=== PATIENT | female | born 1985 | race Caucasian/White ===

== ENCOUNTER → 2018-05-31 01:56 | Outpatient (CLI) | payer BC, SELFPAY ==
[2018-05-31 13:09] LABS: Abs Immature Grans 0.01 k/cumm (0.0-0.09); Absolute Basophil Count 0.06 k/cumm (0.0-0.2); Absolute Eosinophil Count 0.37 k/cumm (0.0-0.7); Absolute Lymphocyte Count 2.75 k/cumm (1.2-3.4); Absolute Monocyte Count 0.61 k/cumm (0.11-0.7); Absolute Neutrophil Count 2.48 k/cumm (1.2-6.7); Eosinophils % 5.9; HCT 37.5 % (36.0-46.0); HGB 12.6 g/dL (12.0-15.5); Immature Grans % 0.2; Lymphocytes % 43.8; Mean Corp. HGB Concentration 33.6 g/dL (32.0-36.0); Mean Corpuscular Hemoglobin 30.5 pg (27.0-33.0); Mean Corpuscular Volume 90.8 fL (80-95); Mean Platelet Volume 9.7 fL (8.0-11.0); Monocytes % 9.7; Neutrophils % 39.4; Platelet Count 333 x1000/uL (130-400); RBC 4.13 m/cumm (4.00-5.20); White Blood Cell Count 6.28 k/cumm (4.4-10.8)
[2018-05-31 13:27] LABS: TSH (W/Ref FT4) 1.74 uIU/mL (0.358-3.74)
== END ==
PROVIDERS: PCP Internal Medicine; Visit Provider Internal Medicine
DX: D64.9 Anemia, unspecified (principal); Z13.29 Encounter for screening for other suspected endocrine disorder; Z31.69 Encounter for other general counseling and advice on procreation
CPT/HCPCS: 36415; 84443; 85025

== ENCOUNTER 2019-02-06 10:38 | Outpatient (CLI) | payer BC, SELFPAY ==
[2019-02-06 11:20] LABS: Abs Immature Grans 0.01 k/cumm (0.0-0.09); Absolute Basophil Count 0.03 k/cumm (0.0-0.2); Absolute Eosinophil Count 0.22 k/cumm (0.0-0.7); Absolute Lymphocyte Count 1.94 k/cumm (1.2-3.4); Absolute Monocyte Count 0.59 k/cumm (0.11-0.7); Absolute Neutrophil Count 6.98 k/cumm (1.2-6.7); Basophils % 0.3; Eosinophils % 2.3; HCT 35.1 % (36.0-46.0); HGB 11.9 g/dL (12.0-15.5); Immature Grans % 0.1; Lymphocytes % 19.9; Mean Corp. HGB Concentration 33.9 g/dL (32.0-36.0); Mean Corpuscular Hemoglobin 30.5 pg (27.0-33.0); Mean Platelet Volume 9.1 fL (8.0-11.0); Neutrophils % 71.4; Platelet Count 312 x1000/uL (130-400); RBC Distribution Width 12.5 % (11.7-14.6); White Blood Cell Count 9.77 k/cumm (4.4-10.8)
[2019-02-06 11:52] LABS: TSH (W/Ref FT4) 1.52 uIU/mL (0.358-3.74)
[2019-02-07 10:20] LABS: Hepatitis C Ab w Rflx HCV PCR Negative (NEGAT)
[2019-02-07 10:25] LABS: HIV-1/2 Ag & Ab Screen Negative (NEGAT)
[2019-02-07 10:31] LABS: Hepatitis B Surface Ag Negative (NEGAT)
[2019-02-07 11:32] LABS: Syphilis Serology (RPR) Negative (Negative)
[2019-02-07 11:36] LABS: Rubella IgG Ab (UVM) Positive
[2019-02-07 11:54] LABS: Varicella IgG Antibody Positive
== END 2019-02-06 10:58 ==
PROVIDERS: PCP Internal Medicine; Visit Provider Advanced Practice Midwife
DX: Z34.91 Encounter for supervision of normal pregnancy, unspecified, first trimester (principal); Z11.4 Encounter for screening for human immunodeficiency virus [HIV]; Z11.59 Encounter for screening for other viral diseases; Z01.84 Encounter for antibody response examination
CPT/HCPCS: 36415; 80055; 86787; 86803; 86850; 86900; 86901; 87340; 87389; 84443; 86592; 86762

== ENCOUNTER 2019-02-06 11:39 | Outpatient (REF) | payer BC, SELFPAY ==
[2019-02-06 14:20] LABS: *AMPHETAMINES SCREEN URINE Negative (Negative); *BARBITURATES SCREEN URINE Negative (Negative); *BENZODIAZEPINES SCREEN URINE Negative (Negative); Cannabinoids THC Negative (Negative); Cocaine Screen,Urine Negative (Negative); METHADONE URINE SCREEN Negative (Negative); OPIATES URINE SCREEN Negative (Negative)
[2019-02-06 14:27] LABS: Tricyclic Antidepressants Negative (Negative)
[2019-02-07 14:49] LABS: Chlamydia Result Negative; GC Result Negative; Specimen Description CERVIX
[2019-02-10 09:46] LABS: Buprenorphine Negative; Norbuprenorphine Negative
== END 2019-02-06 11:59 ==
LOC: LBN 11:39
PROVIDERS: PCP Internal Medicine; Visit Provider Advanced Practice Midwife
DX: Z34.91 Encounter for supervision of normal pregnancy, unspecified, first trimester (principal); Z11.3 Encounter for screening for infections with a predominantly sexual mode of transmission
CPT/HCPCS: 80307; 87491; 87591; 87086

== ENCOUNTER 2019-02-25 10:09 | Outpatient (CLI) | payer BC, SELFPAY ==
[2019-02-27 10:45] LABS: AFP 51.4 ng/mL; Cigarette smoking status non-smoker; GA used in risk estimate Dates estimate; INHIBIN 309 pg/mL; IVF Pregnancy No; Initial or repeat testing Initial testing; Insulin dependent diabetes No; Maternal Weight 151 lbs; Number of Fetuses 1; Physician Phone Number 802-748-7300; Prev Down(T21)/Trisomy Pregnan No; Prev Pregnancy w/NTD No; hCG, TOTAL 107.4 IU/mL; hCG, TOTAL MoM 3.39 MoM; uE3 0.72 ng/mL; uE3 MoM 0.77 MoM
== END 2019-02-25 10:29 ==
PROVIDERS: Advanced Practice Midwife; PCP Internal Medicine; Visit Provider Advanced Practice Midwife
DX: Z34.92 Encounter for supervision of normal pregnancy, unspecified, second trimester (principal); Z36.89 Encounter for other specified antenatal screening
CPT/HCPCS: 81511

== ENCOUNTER 2019-02-28 15:42 | Outpatient (CLI) | payer BC, SELFPAY ==
[2019-02-28 15:57] LABS: Kit/Specimen SENT
== END 2019-02-28 16:02 ==
PROVIDERS: PCP Internal Medicine; Visit Provider Advanced Practice Midwife
DX: Z34.91 Encounter for supervision of normal pregnancy, unspecified, first trimester (principal); Z36.89 Encounter for other specified antenatal screening
CPT/HCPCS: 36415

== ENCOUNTER 2019-03-26 00:55 | Outpatient (CLI) | payer BC, SELFPAY ==
--- NOTE | 2019-03-26 08:41 | DI.US_ITS ---
Predicted Gestational Age: Indication/History: SURVEY,Z34.90 20.4 Wks Range: 19.4 to 21.4 Prior US done on: Determined by: First US X LMP History EDC by prior US: 08/09/19 For multiple gestations: Baby PLACENTA: Grade: 0 Location: Anterior Posterior X PRESENTATION: RT LT LOW LYING PREVIA Cephalic Trans (Head RT LT ) Varied X Breech BIOMETRY: Anatomy Identified: BPD: 50 mm 21.1 wks 4 chamber Heart X Heart Rate 155 BPM HC: 190 mm 21.2 wks LVOT X Post Fossa X AC: 164 mm 21.3 wks RVOT X Ventricles X FL: 34 mm 20.6 wks Stomach X Nose X Bladder X Lips X Cisterna Magna: 3.1 mm CI: 82 Kidneys X Palate X Cerebellum: 2.2 mm 3 vessel cord X Spine X EFW: grms % Cord Insertion X NS= not seen Composite Age (US) 21.1 wks Many abnormalities cannot be diagnosed. A normal exam does not exclude congenital abnormality. EDC by US 08/05/19 Amniotic Fluid Index: Normal COMMENTS: RUQ: LUQ: RLQ: LLQ: Total: cm Biophysical Profile: Score 0/2 ITZ (>2cm) Respirations (>30 sec) Body flexion/extension Extremity flexion/extension TOTAL SCORE Routine examination. There are no priors for comparison. There is a single living intrauterine gestation. Estimated sonographic age is 21 weeks 1 day. The fetus was in various positions during the examination. heart rate is 155 beats per minute. The AP diameter of the renal pelvis is 0.4 cm. The proximal right ureter was visualized. The left renal pelvis is unremarkable The urinary bladder was visualized during the examination. No other abnormalities were appreciated at this time. The placenta is posterior without evidence of previa. Amniotic fluid visually appears within normal limits. IMPRESSION: 1. Single living intrauterine gestation. Estimated sonographic age is 21 weeks 1 day. 2. Right renal pelvic diameter of 4 mm. with visualization of the proximal right ureter. There is visualization of the urinary bladder. Follow up is recommended in this patient for re-assessment of the right renal collecting system.
== END 2019-03-26 01:15 ==
PROVIDERS: PCP Internal Medicine; Visit Provider Advanced Practice Midwife
DX: Z34.92 Encounter for supervision of normal pregnancy, unspecified, second trimester (principal)
CPT/HCPCS: 76805

== ENCOUNTER 2019-05-21 02:01 | Outpatient (CLI) | payer OTHER, SELFPAY ==
[2019-05-21 09:01] LABS: Glucose,1 Hr (Glucola) 87 mg/dL (80-140)
== END 2019-05-21 02:21 ==
PROVIDERS: PCP Internal Medicine; Visit Provider Advanced Practice Midwife
DX: Z34.93 Encounter for supervision of normal pregnancy, unspecified, third trimester (principal)
CPT/HCPCS: 36415; 82950

== ENCOUNTER 2019-06-02 00:24 | Outpatient (CLI) | payer OTHER, SELFPAY ==
--- NOTE | 2019-06-02 10:28 | DI.US_ITS ---
SYMPTOM/DIAGNOSIS: PREV RT FACIAL HYDRONEPHROSIS Z34.90 OB ULTRASOUND, LIMITED 06/02 Right renal pelvic diameter of 4 mm was noted on previous exam of 03/26/19. On today's examination the measurement of the right renal pelvis in AP plane is about 7 mm. No left renal pyelectasis noted. Placenta is posterior with no placenta previa. There is a normal quantity of amniotic fluid. cardiac activity noted at rate of 149 BPM The fetus is in cephalic presentation. CONCLUSION: Borderline size of right renal pelvis, consistent with borderline pyelectasis. evaluation suggested. No gross hydronephrosis. Predicted Gestational Age: Indication/History: 30 +2 Wks Range: to Prior US done on: Determined by: First US LMP History EDC by prior US: 08/09/2019 For multiple gestations: Baby PLACENTA: Grade: I Location: XX Posterior PRESENTATION: RT LT LOW LYING PREVIA Cephalic Trans XX LT BIOMETRY: Anatomy Identified: BPD: mm wks 4 chamber Heart Heart Rate 149 BPM HC: mm wks LVOT Post Fossa AC: mm wks RVOT Ventricles FL: mm wks Stomach Nose Bladder Lips Cisterna Magna: mm CI: Kidneys XX Palate Cerebellum: mm 3 vessel cord Spine EFW: grms % Cord Insertion NS= not seen Composite Age (US) wks Many abnormalities cannot be diagnosed. A normal exam does not exclude congenital abnormality. EDC by US Amniotic Fluid Index: Normal COMMENTS: RUQ: LUQ: RLQ: LLQ: Total: cm Biophysical Profile: Score 0/2 ITZ (>2cm) Respirations (>30 sec) Body flexion/extension Extremity flexion/extension TOTAL SCORE
== END 2019-06-02 00:44 ==
PROVIDERS: PCP Internal Medicine; Visit Provider Advanced Practice Midwife
DX: Z34.90 Encounter for supervision of normal pregnancy, unspecified, unspecified trimester (principal)
CPT/HCPCS: 76815

== ENCOUNTER 2019-07-03 16:55 | Outpatient (REF) | payer OTHER, SELFPAY | END 2019-07-03 17:15 | LOC: LBN 16:55 | PROVIDERS: PCP Internal Medicine; Visit Provider Advanced Practice Midwife | DX: Z34.93 Encounter for supervision of normal pregnancy, unspecified, third trimester (principal) | CPT/HCPCS: 87480; 87510; 87660 ==

== ENCOUNTER 2019-07-12 08:40 | Outpatient (CLI) | payer OTHER, SELFPAY ==
[2019-07-12 12:11] LABS: ALT 33 U/L (14-59); AST 35 U/L (15-37); Albumin 2.5 g/dL (3.4-5.0); Alkaline Phosphatase 175 U/L (46-116); Bilirubin, Direct 0.16 mg/dL (0.00-0.20); Bilirubin, Total 0.5 mg/dL (0.2-1.0); Total Protein 5.8 g/dL (6.4-8.2)
[2019-07-14 17:33] LABS: Bile Acids, Total 8 mcmol/L (<=10)
== END 2019-07-12 09:00 ==
PROVIDERS: PCP Internal Medicine; Visit Provider Advanced Practice Midwife
DX: Z34.93 Encounter for supervision of normal pregnancy, unspecified, third trimester (principal)
CPT/HCPCS: 36415; 80076; 82239

== ENCOUNTER 2019-07-14 15:54 | Outpatient (CLI) | payer OTHER, SELFPAY | END 2019-07-14 16:14 | PROVIDERS: PCP Internal Medicine; Visit Provider Advanced Practice Midwife | DX: O26.613 Liver and biliary tract disorders in pregnancy, third trimester (principal); Z3A.36 36 weeks gestation of pregnancy | CPT/HCPCS: 59025 ==

== ENCOUNTER 2019-07-14 16:42 | Outpatient (REF) | payer OTHER, SELFPAY ==
[2019-07-14 17:27] LABS: *AMPHETAMINES SCREEN URINE Negative (Negative); *BARBITURATES SCREEN URINE Negative (Negative); *BENZODIAZEPINES SCREEN URINE Negative (Negative); Cannabinoids THC Negative (Negative); Cocaine Screen,Urine Negative (Negative); METHADONE URINE SCREEN Negative (Negative); OPIATES URINE SCREEN Negative (Negative)
[2019-07-14 17:49] LABS: Tricyclic Antidepressants Negative (Negative)
[2019-07-18 11:27] LABS: Buprenorphine Negative
== END 2019-07-14 17:02 ==
LOC: LBN 16:42
PROVIDERS: PCP Internal Medicine; Visit Provider Advanced Practice Midwife
DX: Z34.93 Encounter for supervision of normal pregnancy, unspecified, third trimester (principal); Z36.85 Encounter for antenatal screening for Streptococcus B
CPT/HCPCS: 80307; 87081

== ENCOUNTER 2019-07-16 07:25 | Outpatient (CLI) | payer OTHER, SELFPAY ==
--- NOTE | 2019-07-16 09:52 | DI.US_ITS ---
EXAM: US OB BIOPHYSICAL PROFILE CLINICAL HISTORY: probable icp Z34.90 SUPERVISION NORMAL . TECHNIQUE: Ultrasound performed using standard protocol. COMPARISON: US OB 2-3 trimester from 06/02/2019 FINDINGS: A cephalic bhatt is demonstrated. A cardiac rate of 130 beats per minute is noted. There is zach arent right and left hydronephrosis. The right renal pelvis measures 9 mm and the left measures 5 mm. There is a posterior placenta grade 1-2. Please see the obstetrical ultrasound worksheet for the c omplete results this examination.
[2019-07-17 16:19] LABS: Bile Acids, Total 15 mcmol/L (<=10)
== END 2019-07-16 07:45 ==
PROVIDERS: Advanced Practice Midwife; PCP Internal Medicine; Visit Provider Advanced Practice Midwife
DX: L29.9 Pruritus, unspecified; O99.713 Diseases of the skin and subcutaneous tissue complicating pregnancy, third trimester; Z36.89 Encounter for other specified antenatal screening
CPT/HCPCS: 36415; 76815; 76819; 82239

== ENCOUNTER 2019-07-16 10:53 | Outpatient (CLI) | payer OTHER, SELFPAY | END 2019-07-16 11:13 | PROVIDERS: PCP Internal Medicine; Visit Provider Advanced Practice Midwife | DX: O26.613 Liver and biliary tract disorders in pregnancy, third trimester (principal); K83.1 Obstruction of bile duct; Z3A.36 36 weeks gestation of pregnancy | CPT/HCPCS: 59025 ==

== ENCOUNTER 2019-07-18 17:07 | Inpatient (IN) | payer OTHER, SELFPAY ==
[2019-07-18] MEDS: miSOPROStol 25 MCG TAB PO ×2 (17:24→21:26)
[2019-07-18 17:38] LABS: HGB 11.1 g/dL (12.0-15.5); Mean Corp. HGB Concentration 33.6 g/dL (32.0-36.0); Mean Corpuscular Hemoglobin 30.4 pg (27.0-33.0); Mean Corpuscular Volume 90.4 fL (80-95); Mean Platelet Volume 10.8 fL (8.0-11.0); Platelet Count 267 x1000/uL (130-400); RBC 3.65 m/cumm (4.00-5.20); RBC Distribution Width 12.8 % (11.7-14.6)
[2019-07-18] MEDS: Zolpidem 5 MG TAB 10 MG PO (21:25)
[2019-07-19] MEDS: miSOPROStol 25 MCG TAB PO ×2 (02:00→08:21)
[2019-07-19] MEDS: Lactated Ringers 1,000 ML 200 ML IV (14:09)
[2019-07-19] MEDS: Normal Saline Flush 10 ML SYR IVP (21:10)
[2019-07-19] MEDS: Lactated Ringers 500 ML IV (21:10)
[2019-07-19] MEDS: FentaNYL/ROPIvacaine 2 mcg/ml and 0.1% 200 ML CADD Cassette EP (22:00)
[2019-07-20] MEDS: Lactated Ringers 1,000 ML 125 ML IV (12:47)
--- NOTE | 2019-07-20 15:00 | PDOC.ANES ---
Date of service: 07/20/19 Time of Service: 15:00 Anesthesia Note Report Anesthesia Note: Called to replace epidural catheter for patient. Gonzalez Stahl and ROSALBA Bowden reported that epidural catheter had become disconnected. Staff was instructed to stop epidural infusion and remove catheter. Arrived to patient bedside to replace epidural catheter and discussed procedure again with patient with desire to proceed. The second epidural catheter was placed per documented procedure note. Patient tolerated epidural placement well.
[2019-07-21 07:15] LABS: HCT 33.8 % (36.0-46.0); HGB 11.6 g/dL (12.0-15.5); Mean Corp. HGB Concentration 34.3 g/dL (32.0-36.0); Mean Corpuscular Hemoglobin 30.9 pg (27.0-33.0); Mean Corpuscular Volume 89.9 fL (80-95); Mean Platelet Volume 11.2 fL (8.0-11.0); Platelet Count 235 x1000/uL (130-400); RBC 3.76 m/cumm (4.00-5.20); White Blood Cell Count 23.31 k/cumm (4.4-10.8)
[2019-07-21] MEDS: Acetaminophen 325 MG TAB 650 MG PO ×2 (12:17→20:51)
[2019-07-21] MEDS: Ibuprofen 600 MG TAB PO ×2 (12:17→20:50)
[2019-07-22] MEDS: Acetaminophen 325 MG TAB 650 MG PO (12:25)
[2019-07-22] MEDS: Ibuprofen 600 MG TAB PO (12:25)
[2019-07-23] MEDS: Ibuprofen 600 MG TAB PO (10:06)
[2019-07-23] MEDS: Acetaminophen 325 MG TAB 650 MG PO (10:06)
[2019-07-23] MEDS: Hamamelis Leaf/Glycerin 100 EACH BOX PR (10:08)
== END 2019-07-23 15:25 | disposition home or self-care (01) | DRG 768 ==
PROVIDERS: Admitting Provider Advanced Practice Midwife; PCP Internal Medicine; Visit Provider Advanced Practice Midwife
DX: O26.62 Liver and biliary tract disorders in childbirth (principal); Z37.0 Single live birth; K83.1 Obstruction of bile duct; T85.610A Breakdown (mechanical) of cranial or spinal infusion catheter, initial encounter; O76 Abnormality in fetal heart rate and rhythm complicating labor and delivery; O69.1XX0 Labor and delivery complicated by cord around neck, with compression, not applicable or unspecified; Z3A.37 37 weeks gestation of pregnancy
CPT/HCPCS: 36415; 85027; 86850; 86900; 86901; J3490

== ENCOUNTER 2019-09-03 16:36 | Outpatient (REF) | payer OTHER, SELFPAY ==
[2019-09-05 14:28] LABS: Chlamydia Result Negative (Negative)
[2019-09-05 14:37] LABS: GC Result Negative (Negative)
== END 2019-09-03 16:56 ==
LOC: LBN 16:36
PROVIDERS: PCP Internal Medicine; Visit Provider Advanced Practice Midwife
DX: Z30.430 Encounter for insertion of intrauterine contraceptive device (principal); Z11.3 Encounter for screening for infections with a predominantly sexual mode of transmission
CPT/HCPCS: 87491; 87591

== ENCOUNTER 2021-06-10 14:41 | Outpatient (REF) | payer BC, SELFPAY ==
--- NOTE | 2021-06-10 14:00 | PAPFT_PTH ---
PATIENT: Destiny Murillo LOC: [facility] U#:[id number] AGE/SX: 35/F ROOM: RE06/10/[address]: MARILU Mckeon : 1985 BED: DIS: 06/10/2021 SPEC #: [id number] RECD: 06/10/21 18:04 STATUS: NIHARIKA REQ #: [id number] FELICITAS: 06/10/21 14:[address]: Deann Barrientos DEPT: [facility] Cytology RECD BY: Patricia Coleman ENTERED: 06/10/21 18:04 SP TYPE: PAPFT OT DR: Unknown,Unknown Tissues: 1 - CX/ENDOCX FOR PAP SMEARS Procedures: PAP THIN PREP/UVM Screening HPV DNA PROBE Comments: [id number]
== END 2021-06-10 14:42 | disposition home or self-care (01) ==
LOC: LBN 14:41
PROVIDERS: Visit Provider Nurse Practitioner Family
DX: Z12.4 Encounter for screening for malignant neoplasm of cervix (principal); Z11.51 Encounter for screening for human papillomavirus (HPV)
CPT/HCPCS: 88142; 87624

== ENCOUNTER 2022-09-06 02:52 | Outpatient (CLI) | payer BC, SELFPAY ==
[2022-09-06 17:03] LABS: TSH (W/Ref FT4) 1.99 uIU/mL (0.36-3.74)
[2022-09-08 17:15] LABS: Antimullerian Hormone 1.1 ng/mL (0.15-7.5)
== END 2022-09-06 02:53 | disposition home or self-care (01) ==
LOC: LBO 02:52
PROVIDERS: Visit Provider Nurse Practitioner Women's Health
DX: L60.8 Other nail disorders (principal); N97.8 Female infertility of other origin
CPT/HCPCS: 36415; 83520; 84443

== ENCOUNTER 2023-01-25 03:27 | Outpatient (CLI) | payer BC, SELFPAY ==
[2023-01-25 16:44] LABS: Abs Immature Grans 0.04 10^3/uL (0.0-0.06); Absolute Basophil Count 0.03 10^3/uL (0.0-0.2); Absolute Eosinophil Count 0.21 10^3/uL (0.0-0.7); Absolute Lymphocyte Count 2.23 10^3/uL (1.2-3.4); Absolute Monocyte Count 0.71 10^3/uL (0.1-0.8); Absolute Neutrophil Count 4.67 10^3/uL (1.2-6.7); Basophils % 0.4; Eosinophils % 2.7; HCT 35.1 % (36.0-46.0); Immature Grans % 0.5; Lymphocytes % 28.3; MCH 29.8 pg (27.0-33.0); MCHC 34.2 % (32.0-36.0); MCV 87 fL (80-95); MPV 8.6 fL (8.0-11.0); Neutrophils % 59.1; Platelet Count 344 10^3/uL (130-400); RBC 4.03 10^6/uL (3.93-5.22); RDW 12.5 % (11.7-14.6); WBC 7.89 10^3/uL (4.4-10.8)
[2023-01-27 12:48] LABS: HIV-1/2 Ag & Ab Screen Negative (Negative)
[2023-01-28 09:18] LABS: Bile Acids, Total 3 mcmol/L (<=10)
[2023-01-28 13:03] LABS: Syphilis IgG w/Reflex Nonreactive (Nonreactive)
[2023-01-29 09:18] LABS: Hepatitis B Surface Ag Negative (Negative)
[2023-01-29 10:51] LABS: Hepatitis C Ab w Rflx HCV PCR Negative (Negative)
[2023-01-29 10:54] LABS: Rubella IgG Ab (UVM) Positive (See Note); Varicella IgG Antibody Positive (See Note)
== END 2023-01-25 03:28 | disposition home or self-care (01) ==
LOC: LBO 03:28
PROVIDERS: Advanced Practice Midwife; Visit Provider Advanced Practice Midwife
DX: Z34.90 Encounter for supervision of normal pregnancy, unspecified, unspecified trimester
CPT/HCPCS: 36415; 86787; 86803; 86850; 86900; 86901; 87340; 87389; 82239; 85025; 86762; 86780

== ENCOUNTER 2023-01-25 16:34 | Outpatient (REF) | payer BC, SELFPAY ==
[2023-01-25 17:49] LABS: *AMPHETAMINES SCREEN URINE Negative (Negative); *BARBITURATES SCREEN URINE Negative (Negative); *BENZODIAZEPINES SCREEN URINE Negative (Negative); Cannabinoids THC Negative (Negative); Cocaine Screen,Urine Negative (Negative); METHADONE URINE SCREEN Negative (Negative); OPIATES URINE SCREEN Negative (Negative)
[2023-01-25 17:51] LABS: Tricyclic Antidepressants Negative (Negative)
[2023-01-27 14:26] LABS: Chlamydia Result Negative (Negative); GC Result Negative (Negative)
[2023-01-31 15:30] LABS: Buprenorphine Negative ng/mL (Cutoff: 5.0); Norbuprenorphine Negative ng/mL (Cutoff: 2.5)
== END 2023-01-25 16:35 | disposition home or self-care (01) ==
LOC: LBN 16:34
PROVIDERS: Visit Provider Advanced Practice Midwife
DX: Z34.91 Encounter for supervision of normal pregnancy, unspecified, first trimester (principal)
CPT/HCPCS: 80307; 80348; 87491; 87591; 87086; 87480; 87510; 87660

== ENCOUNTER 2023-02-08 10:22 | Outpatient (CLI) | payer BC, SELFPAY ==
[2023-02-08 14:00] LABS: Panorama Kit Sent via Fed Ex
== END 2023-02-08 10:23 | disposition home or self-care (01) ==
PROVIDERS: Visit Provider Advanced Practice Midwife
DX: Z34.91 Encounter for supervision of normal pregnancy, unspecified, first trimester (principal); Z36.89 Encounter for other specified antenatal screening; Z3A.12 12 weeks gestation of pregnancy
CPT/HCPCS: 36415

== ENCOUNTER 2023-02-26 15:41 | Outpatient (REF) | payer BC, SELFPAY | END 2023-02-26 15:42 | disposition home or self-care (01) | LOC: LBN 15:41 | PROVIDERS: Visit Provider Advanced Practice Midwife | DX: O09.292 Supervision of pregnancy with other poor reproductive or obstetric history, second trimester (principal); Z3A.15 15 weeks gestation of pregnancy; R10.30 Lower abdominal pain, unspecified; M54.59 Other low back pain | CPT/HCPCS: 87086 ==

== ENCOUNTER 2023-02-26 20:53 | Inpatient (IN) | payer BC, SELFPAY ==
[2023-02-26 19:45] VITALS: BP 119/75; PULSE 90; RESP 16; TEMP 36.5
[2023-02-26 20:12] LABS: ROM Plus Positive
--- NOTE | 2023-02-26 20:23 | OBCE_ITS ---
Date of service: 02/26/23 Time of Service: 20:23 Assessment and Plan Assessment and plan (1) Premature rupture of membranes (PROM) affecting second : Status: Acute Assessment and plan: Premature rupture of membranes at 15 weeks and 3 minutes. Vaginal bleeding. Consistent with miscarriage. Nonviable, fetus. recommend labor induction with misoprostol. Antibiotic therapy. Await CBC, type and screen , Coagulation studies (2) : Status: Acute (3) Transverse lie of fetus: Status: Acute History of Present Illness History of Present Illness Chief Complaint: Possible rupture of membranes Narrative: Patient is a 37-year-old female 2 para 1 at 15 weeks and 3 days with an EDC of 08/17/2023. Over the course of the weekend she had some intermittent episodes of spotting. She was seen in the office today by Talisha Perez for evaluation. Her exam at that time was benign. Later this evening, she was noted to have a large gush of fluid and agree presented to the center for evaluation. On examination she has a moderate amount of pooling in the vaginal vault along with some bright red bleeding. I was called to evaluate and assist. Bedside ultrasound performed showing a fetus with cardiac activity of approximately 150 in the transverse position with no amniotic fluid surrounding. These findings were discussed with the patient and her . They understand that 15 weeks and 3 days is nonviable, and that rupture membranes at this gestation can be life-threatening. My recommendation would be for labor induction. I would also recommend antibiotic therapy to decrease risk of ascending infection. We will collect baseline laboratory studies including CBC, type and screen, PT, INR, and a TSH. She and her will discuss t he options would be at immediate induction, delayed induction, or the potential for DNA which is far less likely to be able to be coordinated. Consults Consult date: 02/26/23 Requesting physician: Celina Perez Review of Systems Narrative: Back pain yesterday, intermittent bleeding followed by spontaneous rupture of membranes Constitutional Constitutional: Reports as per HPI, Denies body ache(s), Denies chills, Denies excessive sweating, Denies malaise and Denies poor appetite Eyes Eyes: Reports system reviewed and no additional complaints, except as documented ENT Ears, Nose, Mouth, and Throat: Reports system reviewed and no additional complaints, except as documented Cardiovascular Cardiovascular: Reports system reviewed and no additional complaints, except as documented Respiratory Respiratory: Reports system reviewed and no additional complaints, except as documented Gastrointestinal Gastrointestinal: Reports system reviewed and no additional complaints, except as documented Genitourinary Genitourinary: Reports system reviewed and no additional complaints, except as documented Musculoskeletal Musculoskeletal: Reports system reviewed and no additional complaints, except as documented Psychiatric Psychiatric: Reports system reviewed and no additional complaints, except as documented Endocrine Endocrine: Denies excessive sweating PFSH All Active Problems (Updated 02/26/23 @ 20:37 by Ronna Strickland DO) Transverse lie of fetus (Acute) Premature rupture of membranes (PROM) affecting second (Acute) Threatened affecting intrauterine (Acute) History of cholestasis during (Acute) First trimester bleeding (Acute) (Acute) Medical History (Updated 02/26/23 @ 20:37 by Ronna Strickland DO) Dermatitis (01/31/16) Surgical History Appendectomy (~06/2006) Broken Arm (~03/2010) Family History Mother No problems noted. Father Essential hypertension Hyperlipidemia Sister Asthma Grandfather Stroke Grandfather Diabetes TYPE II Heart disease Hyperlipidemia Grandmother No problems noted. 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 Female Reproductive History Menstrual Age of Menarche: 14 Duration of menses: 3-5 days History History 2 Para 1 Hx # Term Pregnancies 1 Multiple births 0 Hx # Pregnancies 0 Ectopic pregnancies 0 AB induced 0 Hx Number of Living Children 1 AB spontaneous 0 Past Pregnancies Del. Date GA/Weeks # Preg Succ Route Wgt Sex Labor Lgth Anesth esia Location [facility] 07/20/19 37 No vaginal 6 lb 4 oz Male 10 hours 50 min regiona l Gonzalez Joseph CNM low apgars Delivery Date: 07/20/19 Last Updated by: Celina Singh CNM Induced due to ICP, delivered easily yet tight nuchal cord noted, unable to reduce, needed to be clamped and cut, baby with poor tone and required resuscitation. Ritter Exam Narrative Exam Narrative: Alert and oriented, no acute distress, appropriate level of grief Const General: cooperative, healthy appearing, comfortable and well developed Nutritional Appearance: average body habitus [facility] Head: normal to inspection Eyes General: appearance normal, both eyes and all related structures Resp Effort & Inspection: normal respiratory effort and no cough Cardio Rate: regular rate Rhythm: regular rhythm GI Inspection: normal to inspection, non-distended and no obesity External Female Exam: normal external appearance Speculum Exam - Vagina: vaginal bleeding OB/External & Speculum: vaginal bleeding Amniotic Fluid: bloody Other: Digital ultrasound confirming fetus in transverse position Skin General skin exam: no rashes or lesions noted Neuro General: patient alert and patient oriented x3 Extrem General: normal to inspection Results Last Vital Signs Temp 97.7 F 02/26/23 19:45 Pulse 90 02/26/23 19:45 Resp 16 02/26/23 19:45 BP 119/75 02/26/23 19:45 Labs 02/26/23 20:20 Labs: Laboratory Results - last 24 hr 02/26/23 19:50 Membranes Rupture Positive
[2023-02-26 20:40] LABS: Absolute Basophil Count 0.07 10^3/uL (0.0-0.2); Absolute Monocyte Count 0.97 10^3/uL (0.1-0.8); Basophils % 0.4; HCT 33.1 % (36.0-46.0); HGB 11.3 g/dL (11.2-15.7); Immature Grans % 0.6; Lymphocytes % 12.2; MCHC 34.1 % (32.0-36.0); MCV 88 fL (80-95); MPV 8.6 fL (8.0-11.0); Monocytes % 5.5; Neutrophils % 80.3; Platelet Count 295 10^3/uL (130-400); RBC 3.77 10^6/uL (3.93-5.22); RDW-SD 41.5 fL; WBC 17.64 10^3/uL (4.4-10.8)
[2023-02-26 20:42] LABS: Absolute Eosinophil Count 0.18 10^3/uL (0.0-0.7); Absolute Lymphocyte Count 2.15 10^3/uL (1.2-3.4); Absolute Neutrophil Count 14.16 10^3/uL (1.2-6.7)
[2023-02-26 20:54] LABS: INR 0.9 (0.9-1.1); PTT Activated 27.4 sec (21.5-31.9); Prothrombin Time 9.2 sec (9.3-11.0)
[2023-02-26 21:08] VITALS: BP 119/75; PULSE 90; RESP 16; TEMP 36.5
--- NOTE | 2023-02-26 21:39 | W.PM.OBHPL1 ---
Date of service: 02/26/23 Time of Service: 19:20 Assessment and Plan Assessment and plan (1) Premature rupture of membranes (PROM) affecting second : Status: Acute Assessment and plan: 1. Consult with Dr. Strickland done, Physician developed plan of care with QUAN and Destiny and her Frank 2. Will move forward with misoprostol IOL and IV antibiotics 3. Physician reports culture of placenta can be done and no further vaginal cultures are needed at this time, also no GBS is needed per consult. 4. See Physician consult 5. Emotional support will be offered throughout process. 6. Anticipate vaginal delivery, will monitor vaginal bleeding as well. KH OB-HPI Labor/Delivery History of Present Illness Reason for Visit: Rule out ROM Chief Complaint: Suspected Rupture of Membranes , Associated Signs and Symptoms of Suspected ROM: leaking clear fluid vaginally with bright red bleeding and passing clots.. SAMIA Calculator Estimated Delivery Date Method Current WG Current Estimate 08/17/23 LMP (Certain) 15w 3d Other Estimates 08/14/23 Ultrasound #1 15w 6d Comments: Call was received from Destiny at approximately 1740 with complaint of having a gush of clear watery fluid and then she showered and it occurred again. She also reported some bright red vaginal bleeding and cramping. She was encouraged to come to to be seen per my consult with Dr. Strickland. On arrival I performed SSE and ROM + obtained. Clear fluid from vagina noted with moderate vaginal bleeding. Clots and moderate amount of blood in vagina and obscured Visualization of cervix. Dr. Strickland presented shortly after SSE and did bedside US that demonstrated minimal amount of fluid around baby and + FHR. Dr. Strickland and I collaboratively discussed with Destiny and her huaband, Frank, that it appears that her marquez are leaking. We discussed that baby is many weeks from being able to live outside of the uterus for any length of time and that continued observation may greatly increase her own risks of infection and bleeding. Discussed inducing labor to decrease that risk as baby is not likely to be able to continue to develop normally without amniotic fluid. We discussed risks, benefits and alternatives to expectant vs active management including induction of labor and patient agrees to induction. We offered giving a period of time to allow for information to settle and or allow them to organize home matters and they chose to stay and work toward starting induction tonight. She agrees to IV access and antibiotics as well as misoprostol use. Destiny had misoprostol as part of her induction process with her toddler at home and denies questions. We did review that this dose is higher, can have side effect of mild temperature, GI distress, uterine cramping with occasionally rapid delivery even before someone can be at the bedside. She verbalizes understanding. They are hoping to avoid immediately seeing baby and Frank is concerned about visualizing blood so our plan will be to keep her covered as much as possible. I have encouraged them to share their needs with us as we go along to make this process as minimally stressful as possible considering the circumstances. KH History of Present Expected Delivery Route/Plan - QUAN? FOB - Frank Murillo Specific Issues/Plan 1. Chronic constipation, history of hemorrhoids, fiber supplement daily and colace PRN 2. History of Cholestasis of 3. First trimester spotting - 10 week US scheduled. 3a. Small amount of spotting at 14 weeks. 4. AMA - Offer level 2 US 5. Reviewed genetic testing options - Uncertain about panorama, declines CF and SMA, declines AFP. Assessment: History Reviewed & Current Informed Consent Informed Consent: Induction of Labor ( ROM and vaginal bleeding in second trimester, remote from viability) Review of Systems All systems reviewed & are unremarkable except as noted in HPI and below Genitourinary Genitourinary: Reports abnormal vaginal bleeding and Reports vaginal discharge (clear watery discharge from vagina ) Psychiatric Psychiatric: Reports as per HPI PFSH All Active Problems Transverse lie of fetus (Acute) Premature rupture of membranes (PROM) affecting second (Acute) Threatened affecting intrauterine (Acute) History of cholestasis during (Acute) First trimester bleeding (Acute) (Acute) Medical History Dermatitis (01/31/16) Surgical History Appendectomy (~06/2006) Broken Arm (~03/2010) Family History Mother No problems noted. Father Essential hypertension Hyperlipidemia Sister Asthma Grandfather Stroke Grandfather Diabetes TYPE II Heart disease Hyperlipidemia Grandmother No problems noted. 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 Female Reproductive History Menstrual Age of Menarche: 14 Duration of menses: 3-5 days History History 2 Para 1 Hx # Term Pregnancies 1 Multiple births 0 Hx # Pregnancies 0 Ectopic pregnancies 0 AB induced 0 Hx Number of Living Children 1 AB spontaneous 0 Past Pregnancies Del. Date GA/Weeks # Preg Succ Route Wgt Sex Labor Lgth Anesthesia Location Prov Complic 07/20/19 37 No vaginal 6 lb 4 oz Male 10 hours 50 min regional Gonzalez Joseph CNM low apgars Delivery Date: 07/20/19 Last Updated by: Celina Singh CNM Induced due to ICP, delivered easily yet tight nuchal cord noted, unable to reduce, needed to be clamped and cut, baby with poor tone and required resuscitation. Ritter Meds Allergies and Home Medications Allergies Allergy/AdvReac Type Severity Reaction Status Date / Time No Known Allergies Allergy Verified 02/26/23 13:13 Home Medications Medication Instructions Recorded Confirmed Type prenat.vits,tom,edy-qfco-lsrap 1 tab PO DAILY 09/28/22 02/26/23 History inulin 2 gram chewable tablet g PO 02/26/23 02/26/23 History (Fiber Gummies) Exam Physical Exam Vital signs: Temp Pulse Resp BP 97.7 F 90 16 119/75 02/26/23 21:08 02/26/23 21:08 02/26/23 21:08 02/26/23 21:08 Vital Signs Reviewed: Yes Constitutional Constitutional: mild distress (consistent with grieving state) Detailed Labor and Delivery Exam Cano Score: Cervical Points Exam 0 1 2 3 Dilation Closed 1-2cm 3-4 cm 5-6cm Effacement 0-30% 40-50% 60-70% 80% Consistency Firm Medium Soft Station -3 -2 -1,0 +1,+2 Position Posterior Mid Anterior Comments: SSE done, difficult to visualized OS due to clots and fresh blood in upper vagina. Physician present after SSE and is aware that there is clear fluid and bleeding noted, ROM + sent. High suspicion for ROM on exam by CNM. Fetus A Assessment Note: Bedside US is done by Dr. Strickland and cardiac activity is noted at this time. HEENT Exam HEENT Exam: Normal Neck Exam Neck Exam: Normal Chest/Brest/Axilla Exam Chest Exam: Normal Breast Exam Breast Exam: Not Done Respiratory Exam Respiratory Exam: Normal Cardiovascular Exam Cardiovascular Exam: Normal Abdominal Exam Abdominal Exam: Normal (Uterine fundus is non tender to palpation and U-3) Rectal Exam Rectal Exam: Not Done Exam Exam: Abnormal (SSE moderate bleeding and clots in vagina, approximately 75cc of blood at time of exam, unable to visualize cervix due to blood clots) Extremities Exam Extremities Exam: Normal Back/Spine/Pelvis Exam Pelvis Adequate: Yes Skin Exam Skin Exam: Normal Neurological Exam Neurological Exam: Normal Psychiatric Exam Psychiatric Exam: Normal (consistent with grieving patient, is supportive and properly grieving as well.) Results Results Group Beta Strep: Not Done Blood Type: O+ Rubella Status: Immune Varicella Immunity: Immune Lab Results: GC CT and Vaginal pathogen in negative for infection. Plan will be to culture placenta at delivery as well per Dr. Strickland. Abnormal Lab Findings: Abnormal Labs 02/26/23 02/26/23 20:32 20:32 WBC 17.64 H RBC 3.77 L Hct 33.1 L Absolute Neutrophils 14.16 H Absolute Monocytes 0.97 H PT 9.2 L Risk Assessment Risk for Shoulder Dystocia Historical/Initial OB: NEGATIVE FOR: Pelvic Abnormality, Pre- BMI>30, Previous Shoulder Dystocia or Previous Macrosomia Risk for Pre-Eclampsia Yes, if 2 or more: POSITIVE FOR: Age>= 35 yrs; NEGATIVE FOR: >10yr btwn pregnancies, BMI>30, ethinicty, Mother/Sister w/ Pre-E or Previous IUGR Risk for Post- Hemorrhage Initial: NEGATIVE FOR: Multiple Gestation, Previous PPH, Known Clotting Deficiency, Grand Multiparity or Anticoagulation At Risk?: Yes ( ROM and vaginal bleeding at 15 weeks 3 days) Counseled re: Active Management: Yes Date/Initials: 02/26/23 Risks Reviewed Risks Reviewed Upon Admission: Yes
[2023-02-26] MEDS: ceFAZolin 2 GM/50 ML BAG 50 GM (21:54)
[2023-02-26] MEDS: Acetaminophen 500 MG TAB 650 MG PO (21:55)
[2023-02-26] MEDS: miSOPROStol 100 MCG TAB 600 MCG PO (21:58)
[2023-02-26 22:16] VITALS: BP 119/75; PULSE 90; RESP 16; TEMP 36.5
[2023-02-26 22:57] LABS: TSH (W/Ref FT4) 2.96 uIU/mL (0.36-3.74)
[2023-02-26 23:32] VITALS: BP 88/44
--- NOTE | 2023-02-26 23:34 | W.PM.OBNL1 ---
Date of service: 02/26/23 Time of Service: 23:34 Informed Consent Informed Consent: Induction of Labor ( ROM and vaginal bleeding in second trimester, remote from viability) Pelvic Exam Dilation: 0.5 Assessment and Plan Assessment and plan (1) Premature rupture of membranes (PROM) affecting second : Status: Acute Assessment and plan: 1. IV fluid bolus and stat CBC with differential to be done 2. Dr. Strickland notified of patient condition 3. Will arrange for pain management with epidural if able to once VS stable. KH Objective Abnormal lab results 02/26/23 02/26/23 Range/Units 20:32 20:32 WBC 17.64 H (4.4-10.8) 10^3/uL RBC 3.77 L (3.93-5.22) 10^6/uL Hct 33.1 L (36.0-46.0) % Absolute Neutrophils 14.16 H (1.2-6.7) 10^3/uL Absolute Monocytes 0.97 H (0.1-0.8) 10^3/uL PT 9.2 L (9.3-11.0) sec Temp Pulse Resp BP 97.7 F 90 16 88/44 L 02/26/23 22:16 02/26/23 22:16 02/26/23 22:16 02/26/23 23:32 Laboratory Results WBC 17.64 10^3/uL (4.4-10.8) H 02/26/23 20:32 RBC 3.77 10^6/uL (3.93-5.22) L 02/26/23 20:32 Hgb 11.3 g/dL (11.2-15.7) 02/26/23 20:32 Hct 33.1 % (36.0-46.0) L 02/26/23 20:32 MCV 88 fL (80-95) 02/26/23 20: MCH 30.0 pg (27.0-33.0) 02/26/23 20: MCHC 34.1 % (32.0-36.0) 02/26/23 20:32 RDW 13.0 % (11.7-14.6) 02/26/23 20:32 Plt Count 295 10^3/uL (130-400) 02/26/23 20:32 MPV 8.6 fL (8.0-11.0) 02/26/23 20:32 Immature Gran % 0.6 02/26/23 20:32 Neutrophils % 80.3 02/26/23 20:32 Lymphocytes % 12.2 02/26/23 20:32 Monocytes % 5.5 02/26/23 20:32 Eosinophils % 1.0 02/26/23 20: Basophils % 0.4 02/26/23 20:32 Nucleated RBC % 0.0 % (0.0-0.3) 02/26/23 20:32 Absolute Neutrophils 14.16 10^3/uL (1.2-6.7) H 02/26/23 20: Absolute Lymphocytes 2.15 10^3/uL (1.2-3.4) 02/26/23 20: Absolute Monocytes 0.97 10^3/uL (0.1-0.8) H 02/26/23 20:32 Absolute Eosinophils 0.18 10^3/uL (0.0-0.7) 02/26/23 20: Absolute Basophils 0.07 10^3/uL (0.0-0.2) 02/26/23 20:32 PT 9.2 sec (9.3-11.0) L 02/26/23 20:32 INR 0.9 (0.9-1.1) 02/26/23 20:32 APTT 27.4 sec (21.5-31.9) 02/26/23 20:32 TSH 2.96 uIU/mL (0.36-3.74) 02/26/23 20:32 Membranes Rupture Positive 02/26/23 19:50 Patient ABO/Rh O Positive 02/26/23 20:32 Antibody Screen NEGATIVE 02/26/23 20:32 Subjective Interval history since last seen: Destiny complains of dizziness and pain. Results Hemoglobin/Hematocrit: Hgb 11.3 g/dL (11.2-15.7) 02/26/23 20:32 Hct 33.1 % (36.0-46.0) L 02/26/23 20:32 Abnormal Lab Findings: Abnormal Labs 02/26/23 02/26/23 20:32 20:32 WBC 17.64 H RBC 3.77 L Hct 33.1 L Absolute Neutrophils 14.16 H Absolute Monocytes 0.97 H PT 9.2 L
[2023-02-26] MEDS: Lactated Ringers 500 ML IV (23:45)
[2023-02-26 23:46] VITALS: BP 97/44; PULSE 81
[2023-02-26 23:50] LABS: Abs Immature Grans 0.09 10^3/uL (0.0-0.06); Absolute Basophil Count 0.07 10^3/uL (0.0-0.2); Absolute Lymphocyte Count 2.76 10^3/uL (1.2-3.4); Absolute Neutrophil Count 12.62 10^3/uL (1.2-6.7); Basophils % 0.4; Eosinophils % 0.9; HCT 30.9 % (36.0-46.0); HGB 10.6 g/dL (11.2-15.7); Immature Grans % 0.5; Lymphocytes % 16.1; MCH 29.9 pg (27.0-33.0); MCHC 34.3 % (32.0-36.0); MCV 87 fL (80-95); MPV 8.5 fL (8.0-11.0); Monocytes % 8.6; Neutrophils % 73.5; Platelet Count 245 10^3/uL (130-400); RBC 3.54 10^6/uL (3.93-5.22); RDW 12.9 % (11.7-14.6); RDW-SD 41.5 fL; WBC 17.17 10^3/uL (4.4-10.8)
[2023-02-26 23:56] LABS: Absolute Eosinophil Count 0.15 10^3/uL (0.0-0.7); Absolute Monocyte Count 1.48 10^3/uL (0.1-0.8)
--- NOTE | 2023-02-27 | NUR.NOTE ---
Dr. Strickland at bedside for sve, niturous started, CBC ordered, anethesia called Nursing Note:
[2023-02-27 00:30] VITALS: BP 114/60; PULSE 76
--- NOTE | 2023-02-27 00:30 | PDOC.ANES ---
Date of service: 02/27/23 Time of Service: 00:30 Anesthesia Note Report Anesthesia Note: Called to evaluate patient for labor analgesia. Upon arrival and after discussion, decision to place intrathecal fentanyl with 0.25% bupivacaine to support shorter birthing process. Pt. consented and equipment prepared. At this same time, patient felt urge to push and baby delivered. No procedure performed.
[2023-02-27 00:38] VITALS: BP 116/69; PULSE 73
[2023-02-27 00:43] VITALS: BP 114/64; PULSE 75
[2023-02-27] MEDS: Oxytocin/Normal Saline 30 UNITS/500 ML BAG 95 UNITS IV (01:13)
[2023-02-27 01:14] VITALS: BP 104/65; PULSE 81
[2023-02-27] MEDS: Ibuprofen 600 MG TAB PO (01:19)
--- NOTE | 2023-02-27 01:30 | PLAC_PTH ---
PATIENT: Destiny Murillo LOC: OBS U#:[id number] AGE/SX: 37/F ROOM: OBS.306 RE02/26/[address]: Celina Perez CNM : 1985 BED: A DIS: 02/27/2023 SPEC #: [id number] RECD: 02/27/23 12:55 STATUS: NIHARIKA REQ #: [id number] FELICITAS: 02/27/23 01:[address]: Celina Perez DEPT: Surgical Specimen RECD BY: Patricia Coleman Tissues: 1 - PLACENTA (NOT 3RD TRIMESTER) Procedures: GROSS AND MICRO LEVEL 4 Comments: [id number]
--- NOTE | 2023-02-27 02:31 | OBVDS_ITS ---
Date of service: 02/27/23 Time of Service: 01:30 OB Labor/ Delivery Information Baby A Delivery Delivery Method: Spontaneaous Presentation: Footling Breech Estimated Blood Loss: 25cc Complications: no heartbeat at of 15w4d delivery for premature rupture of membranes and inevitable . Infant Transferred: Remains with Mother Providers Doctor: Ronna Strickland Nurse Bra[address] Freight: Celina Perez Nurse: Constance Pittman Labor/Delivery Information Number of Babies in Womb: 1 Group Beta Strep: Not Done Antibiotics Administered: Yes Rubella Status: Immune Blood Type: O+ Varicella Immunity: Immune Medication in Delivery: y Note: Destiny and her , Frank presented for ROM check and reports of bright red vaginal bleeding. She was found to be ruptured and likely in early stage of miscarriage. After consultation with Dr. Strickland, Destiny chose to move forward with augmentation with misoprostol to lessen the risks of infection for herself. She received 600mcg of misoprostol at approximately 2200. Her pain became intense and she felt some dizziness and nausea. Destiny's BP had dropped when out of bed at 2332 to 88/44. It resolved with IV hydration. she was hoping for epidural or similar at that point. She agreed to try nitrous while we called anesthesia. Anesthesia presented at approximately 0010 but Destiny was having involuntary urge to bear down at that point. fetus was delivered with maternal pushing effort at 0024 over intact perineum. Cord was cut and baby was handed to Mother to hold per her request. Appropriate grieving noted on behalf of both parents. At 0100 placenta delivered with maternal pushing effort and appeared to be intact. Dr. Strickland verified visual exam of placenta and that it appeared intact. Aerobic culture of side of placenta was obtained by Dr. Strickland to be sent to lab. Placenta will be sent to pathology. Baby will remain with Destiny in the room. EBL 25cc. After initial stabilization, parents were left to hold and mourn the loss of their baby. We will support grieving process and discuss discharge to home as the day progresses. VS stable, remains afebrile. [facility] Stages of Labor Onset of Labor Date: 02/26/23 Infant Delivery Date-Baby A: 02/27/23 Delivery Time-Baby A: 00:24 Placenta Delivery Date-Baby A: 02/27/23 Placenta Delivery Time-Baby A: 01:00 Labor-Stage 3 Duration: 36 minutes Placenta Cultured: Yes Placenta Status: Delivered (sent to pathology)
--- NOTE | 2023-02-27 03:37 | NUR.NOTE ---
RN took memory photos and foot and hand prints per pt request. Pt continues to hold fetus and rests with him in her arms. Pt acting appropriately for circumstances. returned home to toddler.
[2023-02-27 09:00] VITALS: BP 106/60; PULSE 68; RESP 20; TEMP 36.8
--- NOTE | 2023-02-27 09:30 | DSE_ITS ---
Date of service: 02/27/23 Time of Service: 08:00 DS: Diagnosis Discharge Diagnosis (1) Premature rupture of membranes (PROM) affecting second : Status: Acute Asessment and Plan: 1. Normal PP physical course following delivery of non viable 15w4d gestational fetus 2. Emotional support given, will have grieving information available 3. Encouraged to RTO 1 week for follow up or to call as needed. Warning signs reviewed. Discharge Plan Disposition Patient Disposition: Home Condition: Good Discharge Details Reason For Visit: Rule out ROM Admit Date/Time: 02/26/23 20:53 Admit Provider: Celina Perez Attending Provider: Celina Perez Hospital Course Hospital Course: confirmed premature rupture of membranes and inevitable on arrival. Misoprostol 600 mcg PO given and delivery of non viable fetus and placenta was a chieved. Appropriate grieving noted and emotional support offered. Destiny had received Ancef and Gentamicyn IV prior to delivery for presumed infection. No temp, no odor. Placenta culture of side obtained by Dr. Strickland. Discharged to home with planned follow up in 1 week.VIK Home Meds and New Rx's Prescriptions: No Action prenat.vits,tom,[id number] Tablet 1 tab PO DAILY Fiber Gummies 2 gram tablet,chewable PO Discharge Instructions Activity:: Activity as Tolerated Equipment/Supplies:: No Equipment Needed Diet:: As Tolerated Discharge Orders Discharge Orders: Discharge Order (Routine); Ordered 02/27/23 Ordered By: Celina Perez OB:DS Summary Summary Vaginal Delivery Method: Spontaneaous Contraception Discussed Contraception Discussed: No (will be discussed at 1 week PP visit due to grieving parents emotional need), Status at Discharge Functional status at discharge: independent ambulation Overall status at discharge: patient is back to baseline Mental Status: mental status grossly normal Speech and Movement: speech and movement normal Mood: congruent mood Affect: normal affect Time Spent with Patient providing and/or coordinating discharge services: Less than 30 minutes Exam Physical Exam Vital signs: Temp Pulse Resp BP 97.7 F 81 16 104/65 02/26/23 22:16 02/27/23 01:14 02/26/23 22:16 02/27/23 01:14 Vital Signs Reviewed: Yes Narrative: Morning VS pending. VIK Constitutional Constitutional: no acute distress, average body habitus and cooperative HEENT Exam HEENT Exam: Normal Neck Exam Neck Exam: Normal (normal visual inspection) Respiratory Exam Respiratory Exam: Normal Cardiovascular Exam Cardiovascular Exam: Normal Abdominal Exam Abdomen: Other (normal exam) Fundal Exam Comment: Fundus is not palpable above symphisis. Small lochia noted Rectal Exam Rectal Exam: Not Done Exam Perineum: Intact and Normal Extremities Exam Extremity Exam: Normal (denies calf tenderness) and Full ROM Back/Spine/Pelvis Exam Back Exam: Normal Skin Exam Skin Exam: Normal Neurological Exam Neurological Exam: Normal Psychiatric Exam Psychiatric Exam: Normal PFSH All Active Problems Transverse lie of fetus (Acute) Premature rupture of membranes (PROM) affecting second (Acute) Threatened affecting intrauterine (Acute) History of cholestasis during (Acute) First trimester bleeding (Acute) (Acute) Medical History Dermatitis (01/31/16) Surgical History Appendectomy (~06/2006) Broken Arm (~03/2010) Family History Mother No problems noted. Father Essential hypertension Hyperlipidemia Sister Asthma Grandfather Stroke Grandfather Diabetes TYPE II Heart disease Hyperlipidemia Grandmother No problems noted. 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 Female Reproductive History Menstrual Age of Menarche: 14 Duration of menses: 3-5 days History History 2 Para 1 Hx # Term Pregnancies 1 Multiple births 0 Hx # Pregnancies 0 Ectopic pregnancies 0 AB induced 0 Hx Number of Living Children 1 AB spontaneous 0 Past Pregnancies Del. Date GA/Weeks # Preg Succ Route Wgt Sex Labor Lgth Anesth esia Location Prov Complic 07/20/19 37 No vaginal 6 lb 4 oz Male 10 hours 50 min regiona l Gonzalez Joseph CNM low apgars Delivery Date: 07/20/19 Last Updated by: Celina Singh CNM Induced due to ICP, delivered easily yet tight nuchal cord noted, unable to reduce, needed to be clamped and cut, baby with poor tone and required resuscitation. DS: Data Vitals/I&O Vitals and I&O: Vital Signs Temperature 97.7 F 02/26/23 22:16 Temperature Source Oral 02/26/23 19:45 Pulse 81 02/27/23 01:14 Pulse Rhythm Regular 02/26/23 22:16 Respiratory Rate 16 02/26/23 22:16 Blood Pressure 104/65 02/27/23 01:14 Blood Pressure Mean 80 02/27/23 00:43 Oxygen Delivery Method Room Air 02/26/23 22:16 Oxygen Flow Rate 0 02/26/23 22:16 Pain Level 2 02/26/23 22:16 Intake & Output 02/26/23 02/26/23 02/27/23 11:59 23:59 11:59 Output Total 600 / 600 Balance -600 / -600 Weight 150 lb Output: Urine 600 / 600 Other: Urine Color Pale Data Completed and Pending Labs on day of discharge: Labs from last 24 hours 02/26/23 02/26/23 02/26/23 23:44 20:32 20:32 WBC 17.17 H RBC 3.54 L Hgb 10.6 L Hct 30.9 L MCV 87 MCH 29.9 MCHC 34.3 RDW 12.9 Plt Count 245 MPV 8.5 Immature Gran % 0.5 Neutrophils % 73.5 Lymphocytes % 16.1 Monocytes % 8.6 Eosinophils % 0.9 Basophils % 0.4 Nucleated RBC % 0.0 Absolute Neutrophils 12.62 H Absolute Lymphocytes 2.76 Absolute Monocytes 1.48 H Absolute Eosinophils 0.15 Absolute Basophils 0.07 PT 9.2 L INR 0.9 APTT 27.4 TSH 2.96 Membranes Rupture Patient ABO/Rh Antibody Screen 02/26/23 02/26/23 02/26/23 20:32 20:32 19:50 WBC 17.64 H RBC 3.77 L Hgb 11.3 Hct 33.1 L MCV 88 MCH 30.0 MCHC 34.1 RDW 13.0 Plt Count 295 MPV 8.6 Immature Gran % 0.6 Neutrophils % 80.3 Lymphocytes % 12.2 Monocytes % 5.5 Eosinophils % 1.0 Basophils % 0.4 Nucleated RBC % 0.0 Absolute Neutrophils 14.16 H Absolute Lymphocytes 2.15 Absolute Monocytes 0.97 H Absolute Eosinophils 0.18 Absolute Basophils 0.07 PT INR APTT TSH Membranes Rupture Positive Patient ABO/Rh O Positive Antibody Screen NEGATIVE 02/27/23 01:37 Placenta Surgical Culture - Pending Preliminary micro results at discharge 02/27/23 01:37 Surgical Culture - Pending Placenta
== END 2023-02-27 12:00 | disposition home or self-care (01) | DRG 807 ==
LOC: OBS 21:03 → BCD 02-27 09:12
PROVIDERS: Obstetrics & Gynecology; Admitting Provider Advanced Practice Midwife; Visit Provider Advanced Practice Midwife
DX: O42.912 Preterm premature rupture of membranes, unspecified as to length of time between rupture and onset of labor, second trimester; Z37.1 Single stillbirth; Z3A.15 15 weeks gestation of pregnancy; K59.04 Chronic idiopathic constipation; O99.62 Diseases of the digestive system complicating childbirth; O20.8 Other hemorrhage in early pregnancy
CPT/HCPCS: 36415; 84112; 86850; 86900; 86901; 88305; 84443; 85025; 85610; 85730; 87070; 87205; J0690; J1580

== ENCOUNTER 2023-04-18 15:31 | Outpatient (CLI) | payer BC, SELFPAY ==
[2023-04-20 18:24] LABS: Antimullerian Hormone 1.3 ng/mL (0.15-7.5)
== END 2023-04-18 15:32 | disposition home or self-care (01) ==
LOC: LBO 15:34
PROVIDERS: Visit Provider Obstetrics & Gynecology
DX: N97.9 Female infertility, unspecified (principal); N93.8 Other specified abnormal uterine and vaginal bleeding
CPT/HCPCS: 36415; 83520; 84443

== ENCOUNTER 2023-05-09 08:29 | Outpatient (CLI) | payer OTHER, SELFPAY ==
[2023-05-09 11:07] LABS: TSH 1.58 uIU/mL (0.36-3.74)
[2023-05-09 19:55] LABS: Thyroglobulin Antibody <15 U/mL (<=60); Thyroperoxidase Antibody <28 U/mL (<=60)
[2023-05-10 09:22] LABS: Hep B Core Antibody Negative (Negative)
[2023-05-10 09:32] LABS: Hepatitis C Ab w Rflx HCV PCR Negative (Negative)
[2023-05-10 09:43] LABS: HIV-1/2 Ag & Ab Screen Negative (Negative)
[2023-05-10 12:40] LABS: Varicella IgG Antibody Positive (See Note)
[2023-05-10 12:48] LABS: Syphilis Serology (RPR) Negative (Negative)
[2023-05-10 12:51] LABS: Rubella IgG Ab (UVM) Positive (See Note)
[2023-05-10 17:24] LABS: Antimullerian Hormone 1.6 ng/mL (0.15-7.5)
[2023-05-10 22:12] LABS: Hepatitis Be Antigen Negative (Negative)
[2023-05-10 22:46] LABS: Phospholipid Ab, IgG <9.4 GPL; Phospholipid Ab, IgM <9.4 MPL
[2023-05-11 16:25] LABS: Chlamydia Result Negative (Negative); GC Result Negative (Negative)
[2023-05-11 18:24] LABS: Beta 2 GP1 Ab IgG <9.4 SGU; Beta 2 GP1 Ab IgM <9.4 SMU
[2023-05-12 14:20] LABS: Specimen Description URINE
[2023-05-16 08:34] LABS: Misc Referral (MAYO) See Comments
== END 2023-05-09 08:30 | disposition home or self-care (01) ==
LOC: LBO 08:30
PROVIDERS: Visit Provider Obstetrics & Gynecology
DX: Z11.3 Encounter for screening for infections with a predominantly sexual mode of transmission (principal)
CPT/HCPCS: 36415; 85390; 85610; 85613; 85730; 86146; 86147; 86704; 86787; 86803; 86850; 86900; 86901; 87389; 87491; 87591; 83520; 84443; 86376; 86592; 86762; 86800; 87350

== ENCOUNTER 2023-08-10 18:42 | Outpatient (CLI) | payer OTHER, SELFPAY ==
[2023-08-10 17:39] LABS: HCG Quant, Pregnancy 3209 mIU/mL (1-3)
== END 2023-08-10 18:43 | disposition home or self-care (01) ==
LOC: LBO 18:43
PROVIDERS: Visit Provider Obstetrics & Gynecology
DX: N91.0 Primary amenorrhea (principal)
CPT/HCPCS: 36415; 84702

== ENCOUNTER 2023-09-28 03:30 | Outpatient (CLI) | payer OTHER, SELFPAY ==
[2023-09-28 11:41] LABS: Panorama Kit Sent via Fed Ex
[2023-09-28 11:49] LABS: Lab Add On Test DONE
[2023-09-28 11:50] LABS: Abs Immature Grans 0.03 10^3/uL (0.0-0.06); Absolute Basophil Count 0.07 10^3/uL (0.0-0.2); Absolute Eosinophil Count 0.36 10^3/uL (0.0-0.7); Absolute Lymphocyte Count 2.64 10^3/uL (1.2-3.4); Absolute Neutrophil Count 5.06 10^3/uL (1.2-6.7); Basophils % 0.8; Eosinophils % 4.1; HCT 35.9 % (36.0-46.0); HGB 12.1 g/dL (11.2-15.7); Immature Grans % 0.3; Lymphocytes % 30.1; MCH 29.7 pg (27.0-33.0); MCHC 33.7 % (32.0-36.0); MCV 88 fL (80-95); MPV 8.9 fL (8.0-11.0); Monocytes % 6.8; Neutrophils % 57.9; Platelet Count 315 10^3/uL (130-400); RBC 4.08 10^6/uL (3.93-5.22); RDW 12.6 % (11.7-14.6); RDW-SD 40.3 fL; WBC 8.76 10^3/uL (4.4-10.8)
[2023-09-28 12:33] LABS: ALT 21 U/L (14-59); AST 19 U/L (15-37); Albumin 3.7 g/dL (3.4-5.0); Alkaline Phosphatase 64 U/L (46-116); Anion Gap 10.8 mmol/L (3-11); BUN 8 mg/dL (7-18); Bilirubin, Total 0.3 mg/dL (0.2-1.0); CO2 26.2 mmol/L (21.0-32.0); CREATININE 0.6 mg/dL (0.55-1.02); Calcium 9.8 mg/dL (8.5-10.1); Chloride 102 mmol/L (98-107); Estimated GFR 118.49 (mL/min/1.73m2); Glucose 87 mg/dL (74-106); Potassium 3.9 mmol/L (3.5-5.1); Sodium 139 mmol/L (136-145); Total Protein 7.6 g/dL (6.4-8.2)
[2023-09-28 19:59] LABS: Prolactin 30.9 ng/mL (See Note)
[2023-09-28 20:02] LABS: Hepatitis B Surface Ag Negative (Negative)
[2023-09-28 20:32] LABS: HIV-1/2 Ag & Ab Screen Negative (Negative)
[2023-09-28 20:33] LABS: Hepatitis C Ab w Rflx HCV PCR Negative (Negative)
[2023-10-01 11:00] LABS: Varicella IgG Antibody Positive (See Note)
[2023-10-01 11:03] LABS: Rubella IgG Ab (UVM) Positive (See Note)
[2023-10-01 20:08] LABS: Syphilis IgG w/Reflex Nonreactive (Nonreactive)
== END 2023-09-28 03:31 | disposition home or self-care (01) ==
LOC: LBO 03:31
PROVIDERS: Advanced Practice Midwife; Visit Provider Obstetrics & Gynecology
DX: N93.8 Other specified abnormal uterine and vaginal bleeding (principal); Z34.91 Encounter for supervision of normal pregnancy, unspecified, first trimester; Z87.59 Personal history of other complications of pregnancy, childbirth and the puerperium
CPT/HCPCS: 36415; 80053; 86787; 86803; 86850; 86900; 86901; 87340; 87389; 84146; 84702; 85025; 86762; 86780

== ENCOUNTER 2023-09-28 14:52 | Outpatient (REF) | payer OTHER, SELFPAY ==
[2023-09-28 13:13] LABS: *AMPHETAMINES SCREEN URINE Negative (Negative); *BARBITURATES SCREEN URINE Negative (Negative); *BENZODIAZEPINES SCREEN URINE Negative (Negative); Cannabinoids THC Negative (Negative); Cocaine Screen,Urine Negative (Negative); METHADONE URINE SCREEN Negative (Negative); OPIATES URINE SCREEN Negative (Negative)
[2023-09-28 13:14] LABS: Tricyclic Antidepressants Negative (Negative)
[2023-10-03 09:12] LABS: Buprenorphine Negative ng/mL (Cutoff: 5.0); Norbuprenorphine Negative ng/mL (Cutoff: 2.5)
== END 2023-09-28 14:53 | disposition home or self-care (01) ==
LOC: LBN 14:52
PROVIDERS: Visit Provider Advanced Practice Midwife
DX: Z34.91 Encounter for supervision of normal pregnancy, unspecified, first trimester (principal); N89.8 Other specified noninflammatory disorders of vagina
CPT/HCPCS: 80307; 80348; 87086; 87480; 87510; 87660

== ENCOUNTER 2024-01-17 05:05 | Outpatient (CLI) | payer OTHER, SELFPAY ==
[2024-01-17 09:42] LABS: HGB 10.5 g/dL (11.2-15.7); MCH 30.4 pg (27.0-33.0); MCHC 32.8 % (32.0-36.0); MCV 93 fL (80-95); MPV 9.2 fL (8.0-11.0); Platelet Count 305 10^3/uL (130-400); RBC 3.45 10^6/uL (3.93-5.22); RDW 12.6 % (11.7-14.6); RDW-SD 42.6 fL; WBC 11.82 10^3/uL (4.4-10.8)
[2024-01-17 09:57] LABS: Glucose,1 Hr (Glucola) 100 mg/dL (80-140)
[2024-01-19 13:58] LABS: Bile Acids, Total 5 mcmol/L (<=10)
== END 2024-01-17 05:06 | disposition home or self-care (01) ==
LOC: LBO 05:05
PROVIDERS: Visit Provider Advanced Practice Midwife
DX: Z34.93 Encounter for supervision of normal pregnancy, unspecified, third trimester (principal); Z87.59 Personal history of other complications of pregnancy, childbirth and the puerperium; Z87.19 Personal history of other diseases of the digestive system
CPT/HCPCS: 36415; 82950; 85027; 82239

== ENCOUNTER 2024-01-28 09:03 | Outpatient (CLI) | payer OTHER, SELFPAY ==
--- NOTE | 2024-01-28 | DI.US_ITS ---
Exam(s) US OB ITZ WEIGHT EXAM: US OB ITZ WEIGHT CLINICAL HISTORY: bleeding in . TECHNIQUE: Transabdominal obstetrical ultrasound was performed. COMPARISON: US POCUS EXAM from 11/16/2023 FINDINGS: There is a single viable intrauterine gestation with cardiac activity identified-137 bpm The fetus is presently in transverse position with head to the maternal left side.. Amniotic fluid: There is a normal amount of amniotic fluid with an ITZ of 13.0cm. Placental location: The placenta is anterior grade 1,with no evidence of placenta previa. Also no ev idence of placental abruption. Distance from tip of placenta to the internal cervical os is 3.7 cm o n today's study. Cervical length measures 4.[address] this at approximately 29 weeks and 1 day gestational age, implying SAMIA of 04/13/2024. BPD measures 28 weeks and 5 days HC measures 29 weeks and 0 days AC measures 30 weeks and 0 age FL measures 28 weeks and 4 days Estimated weight is 1379 gm-3 pounds, 1 ounce Fetus is at the 50th percentile on the Hadlock scale. IMPRESSION:: Viable intrauterine gestation, as described above. No evidence of placental abruption nor placenta previa, given the history here. DATA REPOSITORY:
[2024-01-28 09:56] VITALS: BP 126/66; PULSE 78; TEMP 36.8
[2024-01-28 09:59] VITALS: BP 126/66; PULSE 78
--- NOTE | 2024-02-04 16:40 | W.OBNST ---
Date of service: 01/28/24 Time of Service: 16:00 NST Evaluation Reason for NST Reasons for Nonstress Test: OTHER, SEE COMMENT Reason for NST Other: well being Gestational Age Gestational Age in Weeks and Days: 29 Weeks and 0Days Test and Monitor Explained Test/Monitor Explained: Test Explained, Monitor Explained and Patient Verbalized Understanding Vital Signs Blood Pressure: 126/66 Pulse: 78 Temperature: 98.2 F Urine Results Urine Protein: Negative Urine Ketones: Negative Urine Glucose: Negative Urine Blood: Negative NST Information Date on Monitor: 01/28/24 Time on Monitor: 09:53 Date off Monitor: 01/28/24 NST Interventions: PO Hydration Contraction Frequency: 0 NST Evaluation Patient States Movement: Present FHR Baseline: 130 Variability: Moderate 6-25 bpm Accelerations: 10x10 Decelerations: None NST Results: Reactive Note Ultrasound Done: N/A. NST Note Note: Destiny reports an episode of spotting after going downhill skiing. She spoke to Dr Strickland on the phone this morning who recommended that she come in for NST. No further episodes of bleeding. US today is WNL. Reactive NST NST Reviewed and Verified by: Celina Singh
[2024-02-04 16:42] VITALS: BP 126/66; PULSE 78; TEMP 36.8
== END 2024-01-28 11:29 ==
LOC: BCD 09:07 → OBS 09:52
PROVIDERS: PCP Obstetrics & Gynecology; Visit Provider Obstetrics & Gynecology
DX: O36.8131 Decreased fetal movements, third trimester, fetus 1 (principal); Z3A.29 29 weeks gestation of pregnancy
CPT/HCPCS: 76816; 59025

== ENCOUNTER 2024-02-04 17:38 | Outpatient (CLI) | payer OTHER, SELFPAY ==
[2024-02-06 18:49] LABS: Bile Acids, Total 3 mcmol/L (<=10)
== END 2024-02-04 17:39 | disposition home or self-care (01) ==
LOC: LBO 17:39
PROVIDERS: PCP Obstetrics & Gynecology; Visit Provider Advanced Practice Midwife
DX: Z34.93 Encounter for supervision of normal pregnancy, unspecified, third trimester (principal); Z87.59 Personal history of other complications of pregnancy, childbirth and the puerperium; Z87.19 Personal history of other diseases of the digestive system; R79.9 Abnormal finding of blood chemistry, unspecified
CPT/HCPCS: 36415; 82239

== ENCOUNTER → 2024-02-20 04:12 | Outpatient (CLI) | payer OTHER, SELFPAY ==
--- NOTE | 2024-02-20 08:30 | DI.US_ITS ---
Exam(s) US OB ITZ WEIGHT EXAM: US OB ITZ WEIGHT CLINICAL HISTORY: growth and ITZ Z87.19 Z87.59 CHOLESTASIS DURING . TECHNIQUE: Transabdominal obstetrical ultrasound was performed. COMPARISON: Prior ultrasound 01/28/2024 FINDINGS: There is a single viable intrauterine gestation with cardiac activity identified-136 bpm The fetus is presently in breech position . Amniotic fluid: There is a normal amount of amniotic fluid with an ITZ of 18.4cm. Placental location: The placenta is anterior grade 1,with no evidence of placenta previa. Dating parameters place this at approximately 32 weeks and 1 day gestational age, implying SAMIA of 04/15/2024. BPD measures 31 weeks and 5 days HC measures 8 2 weeks and 4 days AC measures 32 weeks and 2 days FL measures 32 weeks and 0 days Estimated weight is 1930 gm-4 pounds 4 ounces. Fetus is at the 37th percentile on the Hadlock scale. IMPRESSION:: Viable 3rd trimester gestation, as described above. DATA REPOSITORY:
== END ==
PROVIDERS: PCP Obstetrics & Gynecology; Visit Provider Advanced Practice Midwife
DX: Z87.59 Personal history of other complications of pregnancy, childbirth and the puerperium (principal); Z87.19 Personal history of other diseases of the digestive system; Z34.03 Encounter for supervision of normal first pregnancy, third trimester
CPT/HCPCS: 76816

== ENCOUNTER 2024-03-19 05:04 | Outpatient (CLI) | payer OTHER, SELFPAY ==
[2024-03-21 13:55] LABS: Bile Acids, Total 11 mcmol/L (<=10)
== END 2024-03-19 05:05 | disposition home or self-care (01) ==
LOC: LBO 05:04
PROVIDERS: PCP Obstetrics & Gynecology; Visit Provider Advanced Practice Midwife
DX: Z34.93 Encounter for supervision of normal pregnancy, unspecified, third trimester (principal); Z87.59 Personal history of other complications of pregnancy, childbirth and the puerperium; Z87.19 Personal history of other diseases of the digestive system; Z3A.36 36 weeks gestation of pregnancy
CPT/HCPCS: 36415; 82239

== ENCOUNTER 2024-03-19 16:20 | Outpatient (REF) | payer OTHER, SELFPAY | END 2024-03-19 16:21 | disposition home or self-care (01) | LOC: LBN 16:20 | PROVIDERS: PCP Obstetrics & Gynecology; Visit Provider Advanced Practice Midwife | DX: Z34.93 Encounter for supervision of normal pregnancy, unspecified, third trimester (principal); Z3A.36 36 weeks gestation of pregnancy; Z36.85 Encounter for antenatal screening for Streptococcus B | CPT/HCPCS: 87081 ==

== ENCOUNTER 2024-03-24 14:08 | Outpatient (CLI) | payer OTHER, SELFPAY ==
[2024-03-24 15:35] VITALS: BP 133/77; PULSE 77; TEMP 36.6
--- NOTE | 2024-03-24 16:34 | W.OBNST ---
Date of service: 03/24/24 Time of Service: 16:34 NST Evaluation Reason for NST Reasons for Nonstress Test: OTHER, SEE COMMENT Reason for NST Other: Cholestasis Gestational Age Gestational Age in Weeks and Days: 37 Weeks and 0Days Test and Monitor Explained Test/Monitor Explained: Test Explained, Monitor Explained and Patient Verbalized Understanding Vital Signs Blood Pressure: 133/77 Pulse: 77 Temperature: 97.9 F Urine Results Urine Protein: Negative Urine Ketones: Negative Urine Glucose: Negative Urine Blood: Negative NST Information Date on Monitor: 03/24/24 Time on Monitor: 14:40 Date off Monitor: 03/24/24 Time off Monitor: 15:08 Total Time on Monitor: 28 NST Interventions: PO Hydration and Notify Provider Contraction Frequency: 0 NST Evaluation Patient States Movement: Present FHR Baseline: 140 Variability: Moderate 6-25 bpm Accelerations: 15x15 Decelerations: None NST Results: Reactive Note Ultrasound Done: N/A. NST Note Note: Cvx 1/50% posterior and firm, intact membranes, vtx -2 (hills score=2) NST's x2/wk, CMP nml, repeat bile acids drawn and pending Consult w/Dr. Strickland, IOL for cholestasis @ 38-38+6 wks & /lab surveillance Pt declines medication, states she is not uncomfortable, itching very mild NST Reviewed and Verified by: Judie Pittman
[2024-03-24 16:38] VITALS: BP 133/77; PULSE 77; TEMP 36.6
== END 2024-03-24 15:39 ==
LOC: BCD 14:09 → OBS 14:38
PROVIDERS: PCP Obstetrics & Gynecology; Visit Provider Advanced Practice Midwife
DX: O26.613 Liver and biliary tract disorders in pregnancy, third trimester (principal); Z3A.37 37 weeks gestation of pregnancy
CPT/HCPCS: 59025

== ENCOUNTER 2024-03-24 15:22 | Outpatient (CLI) | payer OTHER, SELFPAY ==
[2024-03-24 14:56] LABS: ALT 35 U/L (14-59); AST 25 U/L (15-37); Albumin 2.7 g/dL (3.4-5.0); Alkaline Phosphatase 183 U/L (46-116); BUN 6 mg/dL (7-18); Bilirubin, Total 0.3 mg/dL (0.2-1.0); CREATININE 0.7 mg/dL (0.55-1.02); Calcium 9.1 mg/dL (8.5-10.1); Chloride 105 mmol/L (98-107); Estimated GFR 113.46 (mL/min/1.73m2); Glucose 122 mg/dL (74-106); Potassium 3.4 mmol/L (3.5-5.1); Sodium 140 mmol/L (136-145); Total Protein 6.6 g/dL (6.4-8.2)
[2024-03-25 21:01] LABS: Bile Acids, Total 8 mcmol/L (<=10)
== END 2024-03-24 15:23 | disposition home or self-care (01) ==
LOC: LBO 03-27 15:23
PROVIDERS: PCP Obstetrics & Gynecology; Visit Provider Advanced Practice Midwife
DX: O26.613 Liver and biliary tract disorders in pregnancy, third trimester (principal); K83.1 Obstruction of bile duct; Z3A.37 37 weeks gestation of pregnancy
CPT/HCPCS: 36415; 80053; 82239

== ENCOUNTER 2024-03-27 07:06 | Outpatient (CLI) | payer OTHER, SELFPAY ==
[2024-03-27 10:05] VITALS: BP 119/78; PULSE 90
[2024-03-27 10:06] VITALS: PULSE 84; O2SAT 95
[2024-03-27 10:07] VITALS: BP 119/78; PULSE 90; TEMP 36.8
[2024-03-27] MEDS: Acetaminophen 325 MG TAB 650 MG PO (10:52)
--- NOTE | 2024-03-27 11:11 | W.OBNST ---
Date of service: 03/27/24 Time of Service: 11:11 NST Evaluation Reason for NST Reasons for Nonstress Test: ADVANCED MATERNAL AGE Gestational Age Gestational Age in Weeks and Days: 37 Weeks and 3Days Test and Monitor Explained Test/Monitor Explained: Test Explained, Monitor Explained and Patient Verbalized Understanding Vital Signs Blood Pressure: 119/78 Pulse: 90 Temperature: 98.3 F Urine Results Urine Protein: Negative Urine Ketones: Negative Urine Glucose: Negative Urine Blood: Negative NST Information Date on Monitor: 03/27/24 Time on Monitor: 10:05 Date off Monitor: 03/27/24 Time off Monitor: 10:28 Total Time on Monitor: 23 NST Interventions: PO Hydration Contraction Frequency: 0 NST Evaluation Patient States Movement: Present FHR Baseline: 135 Variability: Moderate 6-25 bpm Accelerations: 15x15 Decelerations: None NST Results: Reactive Note Ultrasound Done: N/A. NST Note Note: NST today is reactive. Patient is emotionally stressed by having cholestasis and her history of loss. she wants induction when able, despite knowing it could be a prolonged process and could increase risks for C/S etc. I know my baby is fine now and I rather have baby born. Denies increase in itching or pain today. She is going to stop in ED on her way out as she slammed her finger in door of wood stove today. Dr. Perez feels induction at 38 weeks would be acceptable and starting cervical ripening on Sunday evening at 37w6d is fine. Will have Destiny return on Sunday for NST and labs with goal to begin cervical ripening on Sunday evening. VIK NST Reviewed and Verified by: Celina Perez
[2024-03-27 11:15] VITALS: BP 119/78; PULSE 90; TEMP 36.8
== END 2024-03-27 11:16 ==
LOC: BCD 07:06 → OBS 10:01
PROVIDERS: PCP Obstetrics & Gynecology; Visit Provider Obstetrics & Gynecology
DX: O09.523 Supervision of elderly multigravida, third trimester (principal); Z3A.37 37 weeks gestation of pregnancy
CPT/HCPCS: 59025

== ENCOUNTER 2024-03-27 11:03 | Emergency (ER) | payer OTHER, SELFPAY ==
[2024-03-27 11:05] VITALS: BP 113/63; PULSE 74; RESP 13; TEMP 36.6; O2SAT 99
--- NOTE | 2024-03-27 11:12 | W.ED.GENAD ---
Discharge Plan Disposition Patient Disposition: Home Condition: Stable Discharge Details Clinical Impression: Subungual hematoma of left middle finger Primary Care Provider: Ronna Strickland ED Provider: Russell Ambriz Home Meds and New Rx's Prescriptions: Continued prenat.vits,tom,[id number]-[id number] Tablet 1 tab PO DAILY Fiber Gummies 2 gram tablet,chewable 2 g PO PRN PRN ferrous sulfate 325 mg (65 mg iron) tablet 325 mg PO DAILY Discharge Instructions Instructions: Subungual Hematoma (ED) Additional Instructions: You were seen in the emergency department for your subungual hematoma of your left middle finger. Sometimes these injuries need needle decompression by sticking a needle or cautery device through the fingernail to relieve the blood blister. You can avoid this by making significant efforts over the next 48 to 72 hours to rest, ice, gentle compress and elevate the finger often as we discussed. You are also going to treat this as an empiric minor finger fracture with a finger splint for trial of relief for the first week or 2. We made this decision together because you are and it may not be totally necessary to expose your child to radiation for a minor finger fracture at this time without any signs of neurovascular compromise to the finger and you have good range of motion. If you develop severe increase in pain and swelling and redness of the finger pad you may need to represent to the emergency department for reevaluation at that time. Referrals: Ronna Strickland DO [Primary Care Provider] - [facility] General Date/Time Provider Initiated Documentation: 03/27/24 11:12. HPI Narrative: 38 year-old female, 37+ weeks , presents to ED today by POV/ambulating with a chief complaint of L middle finger injury- was placing a log in her woodstove and the lid dropped on her finger with onset just prior to arrival. Quality described as more painful at time of injury, but throbbing pain, no radiation to complete numbness, deformity, crepitus with finger flexion. Severity is described as moderate. Palliating factors include nothing specific. Provoking factors include nothing specific. Patient not anticoagulated. Related Data Home Medications Medication Instructions Recorded Confirmed prenat.vits,tom,bhk-kyog-lgunc 1 tab PO DAILY 09/28/22 03/27/24 inulin 2 gram chewable tablet 2 g PO PRN PRN 03/07/23 03/27/24 (Fiber Gummies) ferrous sulfate 325 mg (65 mg 325 mg PO DAILY 02/04/24 03/27/24 iron) tablet Allergies Allergy/AdvReac Type Severity Reaction Status Date / Time No Known Allergies Allergy Verified 03/27/24 11:10 General Stated Complaint: Orthopedic DYLAN: 4 Review of Systems All systems reviewed & are unremarkable except as noted in HPI and below Exam Narrative Exam Narrative: GENERAL APPEARANCE: Well-nourished, non-toxic, awake and alert, atraumatic, no acute distress. SKIN: Warm, pink, dry, intact, without rashes/lesions/ulcerations. HEAD: Normocephalic, atraumatic, normal hair distribution for gender/age. EYES: Normal conjunctiva, no exudates on lids/lashes. ENT: Nares patent, no circumoral cyanosis, no facial swelling NECK: Supple, trachea midline, painless cervical ROM. LUNGS/CHEST: Non-labored respirations, normal A/P diameter, symmetrical expansion, no chest wall deformity HEART (CV/PV): Regular rate, L radial pulse 2+, no peripheral edema, no JVD. ABDOMEN: Soft, non-distended, no guarding. MSK: Normal ROM, no swelling/deformity to bilateral UEs or LEs, moving all extremities without weakness, no cyanosis, spine midline without tenderness, normal curvature. L UE: Subungual hematoma to about 60% of the left middle finger nailbed, no overt crepitus, no range of motion deficit, mild swelling to the finger pad, no other significant injury, sensation intact in the distal fingertip NEURO: Mental Status AAOx4 - alert to person, place, time, events No facial droop, no forehead involvement. Motor: No focal weakness - strength 5/5 in bilateral UEs and LEs, proximal and distal, symmetric. Sensory: sensation intact to light touch globally. Gait normal: patient ambulated without ataxia into ED room. PSYCH: euthymic, cooperative, pleasant, appropriate speech Course Vital Signs Vital signs: Vital Signs Temperature 36.6 C 03/27/24 11:05 Pulse 74 03/27/24 11:05 Respiratory Rate 13 03/27/24 11:05 Blood Pressure 113/63 03/27/24 11:05 Pulse Oximetry 99 03/27/24 11:05 Temperature 36.6 C 03/27/24 11:05 Temperature Source Temporal Artery Scan 03/27/24 11:05 Pulse 74 03/27/24 11:05 Respiratory Rate 13 03/27/24 11:05 Blood Pressure 113/63 03/27/24 11:05 Blood Pressure Position Sitting 03/27/24 11:05 Pulse Oximetry 99 03/27/24 11:05 Oxygen Delivery Method Room Air 03/27/24 11:05 Oxygen Flow Rate 0 03/27/24 11:05 Pain Level 3 03/27/24 11:05 Medical Decision Making This dictation utilizes [id number] dictation software and may contain unedited grammatical errors. 38 year-old female, 37+ weeks , presents to ED today by POV/ambulating with a chief complaint of L middle finger injury- was placing a log in her woodstove and the lid dropped on her finger with onset just prior to arrival. Quality described as more painful at time of injury, but throbbing pain, no radiation to complete numbness, deformity, crepitus with finger flexion. Severity is described as moderate. Palliating factors include nothing specific. Provoking factors include nothing specific. Patients' medical history: [ ]. Family and social history: [ ]. Pertinent exam findings / vital signs include L UE: Subungual hematoma to about 60% of the left middle finger nailbed, no overt crepitus, no range of motion deficit, mild swelling to the finger pad, no other significant injury, sensation intact in the distal fingertip. Differential / pathologies of concern include subungual hematoma, fracture, contusion. Diagnostic studies of: -discussed XR - patient is 37 weeks , has good ROM of finger- has subungual hematoma without deformity, we are deferring imaging at this time for trial of relief. Interventions of: -finger splint. ED Course/Assessment/Plan: 38-year-old female who is 37 weeks presents with subungual hematoma and possible minor finger fracture of the left third finger, she is right-hand dominant. There may be a possible likely nondisplaced fracture with the patient's good range of motion and sensation and no significant crepitus to palpation, there is a subungual hematoma, I discussed significant elevation and RICE therapy over the next 48 to 72 hours to try and relieve swelling and trial of relief for pain relief. Patient engaged in shared decision-making and we came up with a plan to remain in the finger splint for a week or so and seek reevaluation if having significant pain still, she may have given by this time and an x-ray would pose less risk versus benefit at that time. I counseled her on possibility of increasing fingerpad swelling and significant throbbing and felon and the need for possible return for decompression of subungual hematoma. Findings not consistent with displaced finger fracture, NV compromise. Disposition of Subungual hematoma of Left Middle Finger. Patient verbalized understanding of the plan and return to ED criteria and engaged in shared decision making. Medical Records Medical records reviewed: Yes I reviewed the patient's medical records. Quality:SDOH Health Related Social Needs: No Data to Display PFSH All Active Problems (Updated 03/27/24 @ 11:26 by LADONNA Stanton) Subungual hematoma of left middle finger (Acute) Cholestasis during (Acute) Anemia (Chronic) Vaginal discharge (Acute) (Acute) History of poor outcome (Acute) loss after AROM at 15 weeks gestation Early stage of (Acute) Delayed menses (Acute) Subfertility, female (Acute) DUB (dysfunctional uterine bleeding) (Acute) History of cholestasis during (Acute) Medical History (Updated 03/27/24 @ 11:26 by LADONNA Stanton) Dermatitis (01/31/16) Surgical History Broken Arm (~03/2010) Appendectomy (~06/2006) Family History (Updated 09/28/23 @ 10:45 by Celina Singh CNM) Mother Hypothyroid Father Essential hypertension Hyperlipidemia Sister Asthma Grandfather Stroke Grandfather Diabetes TYPE II Heart disease Hyperlipidemia Grandmother Stroke Social History Smoking/Tobacco Use Status: Never Smoking risk assessment performed?: Yes Alcohol Intake: former Substance use type: does not use Household members: other Details: , Frank Murillo Number of Children: 1 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 Female Reproductive History Menstrual Age of Menarche: 14 Duration of menses: 3-5 days History History 3 Para 1 Hx # Term Pregnancies 1 Multiple births 0 Hx # Pregnancies 0 Ectopic pregnancies 0 AB induced 0 Hx Number of Living Children 1 AB spontaneous 1 Past Pregnancies Del. Date GA/Weeks # Preg Succ Route Wgt Sex Labor Lgth Anesthesia Location Prov Complic 07/20/19 37 No Yes vaginal 2834.952 g Male 10 hours 50 min regional [facility] oJseph CNM low apgars 02/27/23 15 No No vaginal Male QUAN [place]; PROM; inevitable /miscarriage; augmented Delivery Date: 07/20/19 Last Updated by: Celina Singh CNM Induced due to ICP, delivered easily yet tight nuchal cord noted, unable to reduce, needed to be clamped and cut, baby with poor tone and required resuscitation. Ritter Delivery Date: 02/27/23 Last Updated by: Celina Singh CNM Rocio, PPROM, misoprostol induction.
== END 2024-03-27 11:44 | disposition home or self-care (01) ==
PROVIDERS: Emergency Provider Physician Assistant; PCP Obstetrics & Gynecology
DX: S60.132A Contusion of left middle finger with damage to nail, initial encounter (principal); W23.0XXA Caught, crushed, jammed, or pinched between moving objects, initial encounter
CPT/HCPCS: 29130; 99283

== ENCOUNTER 2024-03-30 18:09 | Inpatient (IN) | payer OTHER, SELFPAY ==
[2024-03-30 18:32] VITALS: BP 117/68; PULSE 69; TEMP 36.8
[2024-03-30 18:37] VITALS: BP 117/68; PULSE 69
--- NOTE | 2024-03-30 18:49 | HPE_ITS ---
Date of service: 03/30/24 Time of Service: 18:49 Assessment and Plan Assessment and plan (1) Encounter for induction of labor: Start date: 03/30/24 Start time: 18:58 Status: Acute Assessment and plan: Admit to Center. Options for induction of labor reviewed with Destiny. She would like to start misoprostol PO for cervical ripening. Ambien PRN for sleep. CBC and bile acids drawn. Comfort measures. Anticipate . OB-HPI Labor/Delivery History of Present Illness Reason for Visit: IOL Chief Complaint: Other (induction of labor for history of intrahepatic cholestasis of .). SAMIA Calculator Estimated Delivery Date Method Current WG Current Estimate 04/14/24 LMP (Certain) 37w 6d Comments: Destiny is admitted for induction of labor at her request due to history of demise and history of intrahepatic cholestasis of with her previous . She has been asymptomatic for cholestasis of . She requested bile acid testing and Bile acid level increased to 11 mcmol/L and then down to 3 mcmol/L. Liver enzymes were WNL. She has had concern about well being due to past OB history and a plan was made for IOL at [address] Strickland is on this evening and is aware of this plan. History of Present Expected Delivery Route/Plan - CNM, wants to meet everyone FOB- Frank Murillo BG Hopes to use the tub and commode or stool for pushing, nitrous GBS neg Specific Issues/Plan 1. Chronic constipation, history of hemorrhoids 2. AMA - cfDNA results low risk x5 female. Declines CF, SMA, or AFP. Level 2 scheduled at [facility] 3. History of Cholestasis of - CMP drawn 09/28 = nml, bile acids at 28 wks=5 (nml) 3a. mild itching reported - bile acids WNL 01/16 and 02/03 3b. Bile acid level is 11 @ 36 wks, reviewed w/Dr. Strickland, draw CMP and re peat bile acids ___ 4. 15 week demise - [facility] consult, cervical length US at [facility] starting at 15 wks- 4.6 cms 4a, cervical length @ 13 wks=4.5 cm, @ 17 wks 4.0, @ 19 wksv4.0 4b. EFW 37th% and ITZ 13 at 32 wks, breech 4c. 5/6 EFW 37% ITZ 18.4 breech 5. Heart murmur- referral to PCP 6. First trimester spotting at 8 wks - cervical polyp noted. No further bleeding. 6a. Spotting at 29 weeks - OB US 50%ile and ITZ 12, Reactive NST, precautions reviewed 7. Anemia - taking gummy vitamins and iron supplement recommended. Hgb @ 36 weeks=11.7 8. Tdap done PFS All Active Problems (Updated 03/30/24 @ 18:58 by Celina Singh CNM) Encounter for induction of labor (Acute) Subungual hematoma of left middle finger (Acute) Cholestasis during (Acute) Anemia (Chronic) Vaginal discharge (Acute) (Acute) History of poor outcome (Acute) loss after AROM at 15 weeks gestation Early stage of (Acute) Delayed menses (Acute) Subfertility, female (Acute) DUB (dysfunctional uterine bleeding) (Acute) History of cholestasis during (Acute) Medical History (Updated 03/30/24 @ 18:58 by Celina Singh CNM) Dermatitis (01/31/16) Surgical History Broken Arm (~03/2010) Appendectomy (~06/2006) Family History (Updated 09/28/23 @ 10:45 by Cleina Singh CNM) Mother Hypothyroid Father Essential hypertension Hyperlipidemia Sister Asthma Grandfather Stroke Grandfather Diabetes TYPE II Heart disease Hyperlipidemia Grandmother Stroke Social History Smoking/Tobacco Use Status: Never Smoking risk assessment performed?: Yes Alcohol Intake: former Substance use type: does not use Household members: other Details: , Frank Murillo Housing: house Number of Children: 1 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 Female Reproductive History Menstrual Age of Menarche: 14 Duration of menses: 3-5 days History History 3 Para 1 Hx # Term Pregnancies 1 Multiple births 0 Hx # Pregnancies 0 Ectopic pregnancies 0 AB induced 0 Hx Number of Living Children 1 AB spontaneous 1 Past Pregnancies Del. Date GA/Weeks # Preg Succ Route Wgt Sex Labor Lgth Anesth esia Location Prov Complic 07/20/19 37 No Yes vaginal 6 lb 4 oz Male 10 hours 50 min [facility] Joseph CNM low apgars 02/27/23 15 No No vaginal Male [facility] [place]; PROM; inevitable /miscarriage; augmented Delivery Date: 07/20/19 Last Updated by: Celina Singh CNM Induced due to ICP, delivered easily yet tight nuchal cord noted, unable to reduce, needed to be clamped and cut, baby with poor tone and required resuscitation. Ritter Delivery Date: 02/27/23 Last Updated by: Celina Singh CNM Rocio, PPROM, misoprostol induction. Meds Allergies and Home Medications Allergies Allergy/AdvReac Type Severity Reaction Status Date / Time No Known Allergies Allergy Verified 03/27/24 11:10 Home Medications Medication Instructions Recorded Confirmed Type prenat.vits,tom,uxh-cvnc-ibdmf 1 tab PO DAILY 09/28/22 03/30/24 History inulin 2 gram chewable tablet 2 g PO PRN PRN 03/07/23 03/30/24 History (Fiber Gummies) ferrous sulfate 325 mg (65 mg 325 mg PO DAILY 02/04/24 03/30/24 History iron) tablet Exam Physical Exam Vital signs: Pulse BP 69 117/68 03/30/24 18:37 03/30/24 18:37 Vital Signs Reviewed: Yes Constitutional Constitutional: no acute distress Detailed Labor and Delivery Exam Dilation: 1 Effacement (%): 20 station: -2 Cervix position: posterior Consistency: soft Cano Score: Cervical Points Exam 0 1 2 3 Dilation Closed 1-2cm 3-4 cm 5-6cm Effacement 0-30% 40-50% 60-70% 80% Consistency Firm Medium Soft Station -3 -2 -1,0 +1,+2 Position Posterior Mid Anterior Amniotic Membrane Status: Intact Monitor Mode: External Contraction Frequency(min): irreg Contraction Intensity: Mild Fetus A Heart Rate Baseline: 130 Monitor Accelerations: 15 X 15 Monitor Decelerations: None Variability: Moderate (6-25 BPM) Presentation: Cephalic Categories: Category I HEENT Exam HEENT Exam: Normal Respiratory Exam Respiratory Exam: Normal Cardiovascular Exam Cardiovascular Exam: Normal Abdominal Exam Abdominal Exam: Normal Rectal Exam Rectal Exam: Normal Exam Exam: Normal Extremities Exam Extremities Exam: Normal Back/Spine/Pelvis Exam Back Exam: Normal Skin Exam Skin Exam: Normal Psychiatric Exam Psychiatric Exam: Normal Risk Assessment Risk for Shoulder Dystocia Historical/Initial OB: NEGATIVE FOR: Pelvic Abnormality, Pre- BMI>30, Previous Shoulder Dystocia or Previous Macrosomia 36 Weeks: NEGATIVE FOR: Current Gestational DM, EFW>4500gms or Maternal Weight Gain>40lbs 40 Weeks: NEGATIVE FOR: EFW> 4500 gms, Maternal Weight Gain >40lb or Post Dates Increased Risk?: No Risk for Pre-Eclampsia Daily Dose ASA Indicated: No Yes, if one or more: NEGATIVE FOR: Hx Pre-E/Gest HTN, Chronic HTN, Multiple Gestation, Pre-gestational DM, Renal Disease, Systemic Lupus or APA Syndrome Yes, if 2 or more: POSITIVE FOR: Age>= 35 yrs; NEGATIVE FOR: Nulliparity, >10yr btwn pregnancies, BMI>30, ethinicty, Mother/Sister w/ Pre-E or Previous IUGR Risk for Post- Hemorrhage Initial: NEGATIVE FOR: Multiple Gestation, Previous PPH, Known Clotting Deficiency, Grand Multiparity or Anticoagulation 36 Weeks: NEGATIVE FOR: Anemia, hgb<10, Low platelets(thrombocytopenia), Gestational HTN or Pre-E, Polyhydraminios or EFW>4500gms 40 Weeks: NEGATIVE FOR: Anemia, hgb<10, Low platelets (thrombocytopenia), Gestation HTN or Pre-E, Polyhydraminios or EFW>4500gms At Risk?: No Risks Reviewed Risks Reviewed Upon Admission: Yes
[2024-03-30 19:01] VITALS: BP 107/66; PULSE 70; TEMP 36.7
[2024-03-30] MEDS: miSOPROStol 25 MCG TAB 50 MCG PO ×2 (19:09→23:18)
--- NOTE | 2024-03-30 19:09 | W.OBNST ---
Date of service: 03/30/24 Time of Service: 19:09 NST Evaluation Reason for NST Reasons for Nonstress Test: OTHER, SEE COMMENT Reason for NST Other: IOL Gestational Age Gestational Age in Weeks and Days: 37 Weeks and 6Days Test and Monitor Explained Test/Monitor Explained: Test Explained and Monitor Explained Vital Signs Blood Pressure: 117/68 Pulse: 69 Temperature: 98.2 F Urine Results Urine Protein: Negative Urine Ketones: Negative Urine Glucose: Negative Urine Blood: Negative NST Information Date on Monitor: 03/30/24 Time on Monitor: 18:17 NST Interventions: None NST Evaluation Patient States Movement: Present FHR Baseline: 135 Variability: Moderate 6-25 bpm Accelerations: 15x15 Decelerations: None NST Results: Reactive Note Ultrasound Done: N/A. NST Note Note: Destiny is here for induction of labor. reactive NST obtained and induction options reviewed. NST Reviewed and Verified by: Celina Singh
[2024-03-30 19:10] VITALS: BP 117/68; PULSE 69; TEMP 36.8
[2024-03-30 19:14] LABS: HCT 33.4 % (36.0-46.0); HGB 11.1 g/dL (11.2-15.7); MCH 30.1 pg (27.0-33.0); MCHC 33.2 % (32.0-36.0); MCV 91 fL (80-95); MPV 9.5 fL (8.0-11.0); Platelet Count 295 10^3/uL (130-400); RBC 3.69 10^6/uL (3.93-5.22); RDW-SD 42.6 fL; WBC 11.66 10^3/uL (4.4-10.8)
[2024-03-30 21:13] VITALS: BP 119/72; PULSE 68; TEMP 36.8
[2024-03-30 23:20] VITALS: BP 108/58; PULSE 62; TEMP 36.4
[2024-03-31] VITALS (123 sets, daily range): BP systolic 88–137; BP diastolic 50–82; PULSE 54–122; RESP 16–18; TEMP 36.6–37.5; O2SAT 96; BMI 29.6
--- NOTE | 2024-03-31 02:22 | W.PM.OBNL1 ---
Date of service: 03/31/24 Time of Service: 02:22 Informed Consent Informed Consent: Induction of Labor Pelvic Exam Dilation: 1 Effacement (%): 40 station: -1 Cervix Position: posterior Consistency: soft Vaginal Exam Presentation: Cephalic Contractions Monitor Mode: External Fetus A Monitor: External (US) Heart Rate Baseline: 120 Presentation: Cephalic Variability: Moderate (6-25 BPM) Categories: Category I FHR Rhythm: Regular Characteristics: Normal Accelerations: 15 X 15 Decelerations: None Amniotic Membrane Status: Intact Assessment and Plan Assessment and plan (1) Encounter for induction of labor: Status: Acute Assessment and plan: Will continue cervical ripening with misoprostol. reassess for cervical change PRN. Anticipate . Comfort measures and ambien for sleep offered. Ambien declined. Objective Abnormal lab results 03/30/24 Range/Units 18:40 WBC 11.66 H (4.4-10.8) 10^3/uL RBC 3.69 L (3.93-5.22) 10^6/uL Hgb 11.1 L (11.2-15.7) g/dL Hct 33.4 L (36.0-46.0) % Temp Pulse BP 98.5 F 60 100/63 03/31/24 01:17 03/31/24 01:17 03/31/24 01:17 Laboratory Results WBC 11.66 10^3/uL (4.4-10.8) H 03/30/24 18:40 RBC 3.69 10^6/uL (3.93-5.22) L 03/30/24 18:40 Hgb 11.1 g/dL (11.2-15.7) L 03/30/24 18:40 Hct 33.4 % (36.0-46.0) L 03/30/24 18:40 MCV 91 fL (80-95) 03/30/24 18:40 MCH 30.1 pg (27.0-33.0) 03/30/24 18:40 MCHC 33.2 % (32.0-36.0) 03/30/24 18:40 RDW 13.0 % (11.7-14.6) 03/30/24 18:40 Plt Count 295 10^3/uL (130-400) 03/30/24 18:40 MPV 9.5 fL (8.0-11.0) 03/30/24 18:40 ABO/Rh O Positive 03/30/24 18:40 Antibody Screen NEGATIVE 03/30/24 18:40 Subjective Patient Reports: New Complaints Interval history since last seen: Destiny reports constant pressure and discomfort. She has been using the ball and ambulating and has not slept. Results Hemoglobin/Hematocrit: Hgb 11.1 g/dL (11.2-15.7) L 03/30/24 18:40 Hct 33.4 % (36.0-46.0) L 03/30/24 18:40 Abnormal Lab Findings: Abnormal Labs 03/30/24 18:40 WBC 11.66 H RBC 3.69 L Hgb 11.1 L Hct 33.4 L
[2024-03-31] MEDS: miSOPROStol 25 MCG TAB 50 MCG PO ×2 (03:18→07:56)
--- NOTE | 2024-03-31 08:55 | W.PM.OBNL1 ---
Date of service: 03/31/24 Time of Service: 08:55 Informed Consent Informed Consent: Induction of Labor Pelvic Exam Dilation: 1 Effacement (%): 75 station: -1 Cervix Position: posterior Consistency: soft Vaginal Exam Presentation: Cephalic Contractions Monitor Mode: External Contraction Frequency(min): every 3 Contraction Duration(sec): 60 Intensity: Moderate/Strong Fetus A Monitor: External (US) Heart Rate Baseline: 130 Variability: Moderate (6-25 BPM) Categories: Category I FHR Rhythm: Regular Accelerations: 15 X 15 Decelerations: None Assessment and Plan Assessment and plan (1) Encounter for induction of labor: Status: Acute Assessment and plan: The tub was prepared and Destiny was offered nitrous oxid for pain relief. Both are having good effect and anticipate . Dr. Perez is the MD data processing control clerk and was notified of the plan for continued misoprostol administration and/or AROM when appropriate. Destiny hopes to avoid pitocin if possible. Objective Abnormal lab results 03/30/24 Range/Units 18:40 WBC 11.66 H (4.4-10.8) 10^3/uL RBC 3.69 L (3.93-5.22) 10^6/uL Hgb 11.1 L (11.2-15.7) g/dL Hct 33.4 L (36.0-46.0) % Temp Pulse Resp BP Pulse Ox 97.9 F 67 16 110/65 96 03/31/24 07:13 03/31/24 07:13 03/31/24 07:13 03/31/24 07:13 03/31/24 07:13 Laboratory Results WBC 11.66 10^3/uL (4.4-10.8) H 03/30/24 18:40 RBC 3.69 10^6/uL (3.93-5.22) L 03/30/24 18:40 Hgb 11.1 g/dL (11.2-15.7) L 03/30/24 18:40 Hct 33.4 % (36.0-46.0) L 03/30/24 18:40 MCV 91 fL (80-95) 03/30/24 18:40 MCH 30.1 pg (27.0-33.0) 03/30/24 18:40 MCHC 33.2 % (32.0-36.0) 03/30/24 18:40 RDW 13.0 % (11.7-14.6) 03/30/24 18:40 Plt Count 295 10^3/uL (130-400) 03/30/24 18:40 MPV 9.5 fL (8.0-11.0) 03/30/24 18:40 ABO/Rh O Positive 03/30/24 18:40 Antibody Screen NEGATIVE 03/30/24 18:40 Subjective Patient Reports: New Complaints Interval history since last seen: ll rested off and on and is now experiencing stronger contractions and requests pain relief. She is coping well and requests to use the tub. Results Hemoglobin/Hematocrit: Hgb 11.1 g/dL (11.2-15.7) L 03/30/24 18:40 Hct 33.4 % (36.0-46.0) L 03/30/24 18:40 Abnormal Lab Findings: Abnormal Labs 03/30/24 18:40 WBC 11.66 H RBC 3.69 L Hgb 11.1 L Hct 33.4 L
--- NOTE | 2024-03-31 10:29 | ANES.PREOP_ITS ---
General Info Date of Service Date Performed: 03/31/24 Height: 5 ft 5 in Weight: 80.8 kg Body Mass Index (BMI): 29.6 Meds Allergies and Home Medications Allergies Allergy/AdvReac Type Severity Reaction Status Date / Time No Known Allergies Allergy Verified 03/27/24 11:10 Home Medication Medication Instructions Recorded prenat.vits,tom,dsl-jtxe-zhwzy 1 tab PO DAILY 09/28/22 inulin 2 gram chewable tablet 2 g PO PRN PRN 03/07/23 (Fiber Gummies) ferrous sulfate 325 mg (65 mg 325 mg PO DAILY 02/04/24 iron) tablet Current Visit Medications: Current Medications Generic Name Dose Route Start Last Admin Trade Name Freq PRN Reason Stop Dose Admin Ringer's Solution 1,000 mls @ 200 mls/hr 03/30/24 19:00 IV INFUSION LASHA IV Miscellaneous Supplies 1 each 03/30/24 19:00 Iv Access IV DIRECTED LASHA Misoprostol 50 mcg 03/30/24 19:00 03/31/24 07:56 Misoprostol 25 Mcg Tab PO 50 mcg Q4H LASHA Administration Sodium Chloride 0 ml 03/30/24 18:47 Normal Saline Flush 10 Ml Syr IVP PRN PRN Sodium Chloride 0 ml 03/30/24 20:00 03/30/24 20:43 Normal Saline Flush 10 Ml Syr IVP Not Given BID LASHA Sodium Chloride 0 ml 03/30/24 18:47 Normal Saline 10 Ml Vial IJ DIRECTED PRN Terbutaline Sulfate 0.25 mg 03/30/24 18:47 Terbutaline 1 Mg/Ml Vial SC PRN PRN PFSH Active Problems Active Problems: Problem Status Onset Code Encounter for induction of labor Z34.90 Subungual hematoma of left middle finger S60.132A Cholestasis during O26.619, K83.1 Anemia D64.9 Vaginal discharge N89.8 Z34.90 History of poor outcome Z87.59 Early stage of Z34.90 Delayed menses N91.0 Subfertility, female N97.9 DUB (dysfunctional uterine bleeding) N93.8 History of cholestasis during Z87.59, Z87.19 Medical History Medical History (Updated 03/30/24 @ 18:58 by Celina Singh CNM) Dermatitis (01/31/16) Surgical History Surgical History Broken Arm (~03/2010) Appendectomy (~06/2006) Tobacco Smoking/Tobacco Use Status: Never Alcohol Alcohol Intake: former Substance Use Substance use type: does not use Prental History History 2 3 Para 1 Hx # Term Pregnancies 1 Multiple births 0 Hx # Pregnancies 0 Ectopic pregnancies 0 AB induced 0 Hx Number of Living Children 1 AB spontaneous 1 Past Pregnancies Del. Date GA/Weeks # Preg Succ Route Wgt Sex Labor Lgth Anesth esia Location Prov Complic 07/20/19 37 No Yes vaginal 2834.952 g Male 10 hours 50 min region al Gonzalez Joseph CNM low apgars 02/27/23 15 No No vaginal Male QUAN [place]; PROM; inevitable /miscarriage; augmented Delivery Date: 07/20/19 Last Updated by: Celina Singh CNM Induced due to ICP, delivered easily yet tight nuchal cord noted, unable to reduce, needed to be clamped and cut, baby with poor tone and required resuscitation. Ritter Delivery Date: 02/27/23 Last Updated by: Celina Singh CNM Rocio, PPROM, misoprostol induction. Vital Signs and Lab Results Vital Signs Most Recent Vital Signs in EMR: Most Recent Vital Signs Temp Pulse Resp BP Pulse Ox 36.6 C 67 16 119/60 96 03/31/24 09:38 03/31/24 09:38 03/31/24 09:38 03/31/24 09:38 03/31/24 09:38 Lab Results 03/30/24 18:40 Blood Type / Crossmatch: 2 Antibody Screen NEGATIVE 03/30/24 Complete Blood Count: 2 White Blood Count 11.66 10^3/uL (4.4-10.8) H 03/30/24 18:40 Red Blood Count 3.69 10^6/uL (3.93-5.22) L 03/30/24 18:40 Hemoglobin 11.1 g/dL (11.2-15.7) L 03/30/24 18:40 Hematocrit 33.4 % (36.0-46.0) L 03/30/24 18:40 Platelet Count 295 10^3/uL (130-400) 03/30/24 18:40 Complete Metabolic Panel: 2 Sodium 140 mmol/L (136-145) 03/24/24 14:31 Potassium 3.4 mmol/L (3.5-5.1) L 03/24/24 14:31 Chloride 105 mmol/L (98-107) 03/24/24 14:31 Carbon Dioxide 23.0 mmol/L (21.0-32.0) 03/24/24 14:31 BUN 6 mg/dL (7-18) L 03/24/24 14:31 Creatinine 0.7 mg/dL (0.55-1.02) 03/24/24 14:31 Est GFR (CKD-EPI 2020) 113.46 (mL/min/1.73m2) 03/24/24 14:31 Calcium 9.1 mg/dL (8.5-10.1) 03/24/24 14:31 Albumin 2.7 g/dL (3.4-5.0) L 03/24/24 14:31 Glucose 122 mg/dL (74-106) H 03/24/24 14:31 Liver Function Panel: 2 Alanine Aminotransferase (ALT/SGPT) 35 U/L (14-59) 03/24/24 14: 31 Aspartate Amino Transf (AST/SGOT) 25 U/L (15-37) 03/24/24 14:31 Coagulation Panel: 2 No Data to Display Cardiac Panel: 2 No Data to Display Arterial Blood Gas: 2 No Data to Display Venous Blood Gas: 2 No Data to Display Pancreas Panel: 2 No Data to Display Thyroid Panel: 2 No Data to Display Infectious Disease: 2 No Data to Display Blood Cultures: 2 No Data to Display Toxicology Panel: 2 No Data to Display Panel: 2 No Data to Display Anesthesia Assessment and Plan Anesthesia History Personal History: No History of Anesthesia Complications Family History: No Family History of Anesthesia Complications Exercise Tolerance Exercise Tolerance: Metabolic Equivalents>4 Cardiac & Pulmonary Exam Cardiac Exam: Normal S1/S2 Heart Sounds Pulmonary Exam: Clear Bilateral Breath Sounds Implantable Cardiac Device Does patient have a Pacemaker or an ICD?: No Airway Exam Known Difficult Airway: No Mallampati Class: 3 Mouth Opening: Normal (> 3cm) Thyromental Distance: Greater than 3 cm Neck Range of Motion: Full ROM Neck Circumference: Normal Teeth Condition: Normal Dentition ASA Classification ASA Score: ASA 2 Emergency Case?: No NPO Status NPO Status: Full Stomach Status Status: Confirmed Anesthesia Plan Resuscitation Status: Full Code Anesthesia Technique: Epidural Anesthesia Airway Planned: Natural Airway Pain Management: Epidural Monitors Used: Standard Monitors Preoperative Comments:: 38 yo female requesting labor analgesia. Sig PMHx: anemia, never smoker. Plt: 295 Previous Anes: - epidural, OCTAVIA 6 cm, no issues.
[2024-03-31] MEDS: Lactated Ringers 500 ML IV (10:41)
[2024-03-31] MEDS: FentaNYL/ROPIvacaine 2 mcg/ml and 0.1% 200 ML CADD Cassette EP (11:00)
--- NOTE | 2024-03-31 11:18 | W.ANESNEU ---
Epidural/Spinal Catheter Date Performed: 03/31/24 Procedure Start: 10:49 Procedure Stop: 10:53 Requesting Provider: Celina Singh Procedure Location: Obstetrics Reason Performed: Labor Epidural Standard Monitors Applied: ECG, Blood Pressure and SpO2 Patient Position: Sitting Sedation Given (Indicate Dose Given): No Sedation given Patient Mental Status: Awake Sterility: Hand Hygiene, Surgical Cap, Surgical Mask, Sterile Gloves and Sterile Drape/Sheet Procedure Location: L2-L3 Interspace Epidural Needle: Tuohy 17 Guage Needle Length: 3.5 Inch Needle Approach: Midline Epidural Procedure: OCTAVIA to Saline Used Catheter Placed?: Catheter Placed (wire reinforced. ) Test Dose (Indicate Dose Given): 3ml 1.5% Lidocaine with 1:200K Epinephrine Given and Negative Test Dose Loss of Resistance Depth (cm): 4 Catheter depth at skin (cm): 8 Dressing: Sorbaview Dressing Placed, Mastisol Used and Dressing reinforced with Tape Epidural Provider Bolus (Indicate Dose Given): Total Ropivacaine 0.1% with Fentanyl 2mcg/ml Given from pump. (ml) (7 mL + 4 mL) Dose:: 11 mL Additives (Indicate Dose Given ): None Infusion Medication: Medication Infusion Began Medication Infusion: Ropivacaine 0.1% with Fentanyl 2mcg/ml Maintenance Infusion Rate (ml/hour): 10 PCEA Bolus Dose (ml): 5 Block Level: N/A Paresthesia: None Ultrasound: Used to lizabeth site Number of Attempts (See previous attempts in note section): 1 Procedure Tolerated: No Complications Procedure Outcome: Successful Performed By: Khari Vang
--- NOTE | 2024-03-31 11:36 | W.PM.OBNL1 ---
Date of service: 03/31/24 Time of Service: 11:36 Informed Consent Informed Consent: Induction of Labor Pelvic Exam Dilation: 2 Effacement (%): 85 station: -1 Cervix Position: posterior Consistency: soft Vaginal Exam Presentation: Cephalic Contractions Monitor Mode: External Contraction Frequency(min): every 3 min Contraction Duration(sec): 50-60 Intensity: Strong Fetus A Monitor: External (US) Heart Rate Baseline: 140 Presentation: Cephalic Variability: Moderate (6-25 BPM) Categories: Category I FHR Rhythm: Regular Accelerations: 15 X 15 Amniotic Membrane Status: Intact Assessment and Plan Assessment and plan (1) Encounter for induction of labor: Status: Acute Assessment and plan: Continue to assess labor pattern and progress. Consider AROM. Anticipate , Objective Abnormal lab results 03/30/24 Range/Units 18:40 WBC 11.66 H (4.4-10.8) 10^3/uL RBC 3.69 L (3.93-5.22) 10^6/uL Hgb 11.1 L (11.2-15.7) g/dL Hct 33.4 L (36.0-46.0) % Temp Pulse Resp BP Pulse Ox 97.9 F 69 16 102/57 L 96 03/31/24 09:38 03/31/24 11:35 03/31/24 11:26 03/31/24 11:35 03/31/24 09:38 Laboratory Results WBC 11.66 10^3/uL (4.4-10.8) H 03/30/24 18:40 RBC 3.69 10^6/uL (3.93-5.22) L 03/30/24 18:40 Hgb 11.1 g/dL (11.2-15.7) L 03/30/24 18:40 Hct 33.4 % (36.0-46.0) L 03/30/24 18:40 MCV 91 fL (80-95) 03/30/24 18:40 MCH 30.1 pg (27.0-33.0) 03/30/24 18:40 MCHC 33.2 % (32.0-36.0) 03/30/24 18:40 RDW 13.0 % (11.7-14.6) 03/30/24 18:40 Plt Count 295 10^3/uL (130-400) 03/30/24 18:40 MPV 9.5 fL (8.0-11.0) 03/30/24 18:40 ABO/Rh O Positive 03/30/24 18:40 Antibody Screen NEGATIVE 03/30/24 18:40 Subjective Patient Reports: New Complaints Interval history since last seen: Destiny reports stronger contractions. She used the tub and nitrous oxide for pain relief with good effect and she requested epidural analgesia. She received an epidural administered by Khari WALKER. She is now resting comfortably. Results Hemoglobin/Hematocrit: Hgb 11.1 g/dL (11.2-15.7) L 03/30/24 18:40 Hct 33.4 % (36.0-46.0) L 03/30/24 18:40 Abnormal Lab Findings: Abnormal Labs 03/30/24 18:40 WBC 11.66 H RBC 3.69 L Hgb 11.1 L Hct 33.4 L
[2024-03-31] MEDS: Lactated Ringers 1,000 ML 125 ML IV (13:58)
[2024-03-31] MEDS: Lactated Ringers 250 ML 500 ML IV (13:58)
--- NOTE | 2024-03-31 14:10 | W.PM.OBNL1 ---
Date of service: 03/31/24 Time of Service: 14:10 Informed Consent Informed Consent: Induction of Labor Pelvic Exam Dilation: 3 Effacement (%): 90 station: -1 Cervix Position: posterior Consistency: soft Vaginal Exam Presentation: Cephalic Pooling: Positive Comments: AROM performed for mod amount clear fluid. Contractions Monitor Mode: External Contraction Frequency(min): every 2.5 min Contraction Duration(sec): 50-60 Intensity: Strong Fetus A Monitor: External (US) Heart Rate Baseline: 130 Presentation: Cephalic Variability: Moderate (6-25 BPM) Categories: Category I FHR Rhythm: Regular Accelerations: 15 X 15 Decelerations: Early Assessment and Plan Assessment and plan (1) Encounter for induction of labor: Status: Acute Assessment and plan: AROM performed. Anticipate . Consider pitocin augmentation if indicated. Objective Abnormal lab results 03/30/24 Range/Units 18:40 WBC 11.66 H (4.4-10.8) 10^3/uL RBC 3.69 L (3.93-5.22) 10^6/uL Hgb 11.1 L (11.2-15.7) g/dL Hct 33.4 L (36.0-46.0) % Temp Pulse Resp BP Pulse Ox 97.9 F 66 16 93/50 L 96 03/31/24 09:38 03/31/24 14:09 03/31/24 14:07 03/31/24 14:01 03/31/24 09:38 Laboratory Results WBC 11.66 10^3/uL (4.4-10.8) H 03/30/24 18:40 RBC 3.69 10^6/uL (3.93-5.22) L 03/30/24 18:40 Hgb 11.1 g/dL (11.2-15.7) L 03/30/24 18:40 Hct 33.4 % (36.0-46.0) L 03/30/24 18:40 MCV 91 fL (80-95) 03/30/24 18:40 MCH 30.1 pg (27.0-33.0) 03/30/24 18:40 MCHC 33.2 % (32.0-36.0) 03/30/24 18:40 RDW 13.0 % (11.7-14.6) 03/30/24 18:40 Plt Count 295 10^3/uL (130-400) 03/30/24 18:40 MPV 9.5 fL (8.0-11.0) 03/30/24 18:40 ABO/Rh O Positive 03/30/24 18:40 Antibody Screen NEGATIVE 03/30/24 18:40 Subjective Patient Reports: No new Complaints Interval history since last seen: Resting comfortably Results Hemoglobin/Hematocrit: Hgb 11.1 g/dL (11.2-15.7) L 03/30/24 18:40 Hct 33.4 % (36.0-46.0) L 03/30/24 18:40 Abnormal Lab Findings: Abnormal Labs 03/30/24 18:40 WBC 11.66 H RBC 3.69 L Hgb 11.1 L Hct 33.4 L
[2024-03-31] MEDS: Oxytocin/Normal Saline 30 UNIT/500 ML BAG 95 UNITS IV (16:18)
--- NOTE | 2024-03-31 17:09 | OBVDS_ITS ---
Date of service: 03/31/24 Time of Service: 17:09 OB Labor/ Delivery Information Baby A Delivery Delivery Method: Spontaneaous Presentation: Cephalic Cephalic Position: Vertex Vertex Position: Right Occipital Anterior Cord Description-Baby A: 3 Vessels Amniotic Fluid: Clear Estimated Blood Loss: 200 Delivery Outcome: Liveborn Transferred: Remains with Mother Note: Destiny rested well with epidural. FHTs 130s during first stage of labor. FHTs 130s in second stage with variable and early decelerations associated with contractions. She progressed to full dilation and began pushing. Second stage huddle was done. Spontaneous delivery of female infant delivered in IWONA position. Baby was placed on mother's abdomen and dried and stimulated. Spontaneous cry. Cord was clamped and cut by the RN . The placenta delivered spontaneously and appears to by intact with a three vessel cord. Pitocin 30 units IV was administered prior to delivery of the placenta. The perineum was inspected and a small right francesco-urethral laceration was repaired . The baby did breastfeed. After delivery, Mother and baby and father of the baby were stable and bonding well in the delivery room and there were no complications. Providers Nurse Diagnostic Sales Specialist: Celina Singh Nurse: Edie Lamas Nurse: Yaritza Spring Labor/Delivery Information Number of Babies in Womb: 1 Steroids Given: None Reason Steroids Not Administered: N/A Group Beta Strep: Negative Antibiotics Administered: No Rubella Status: Immune Blood Type: O+ Varicella Immunity: Immune Born En Route: No Maternal Complications: None Shoulder Dystocia: No Stages of Labor Onset of Labor Date: 03/31/24 Onset of Labor Time: 13:00 Complete Dilatation Date: 03/31/24 Complete Dilatation Time: 15:30 Labor - Stage 1 Duration: 2 hours and 30 minutes ROM Baby A: 03/31/24 ROM Baby A: 13:00 ROM Total Time- Baby A: [id number] Delivery Date-Baby A: 03/31/24 Infant Delivery Time-Baby A: 16:14 Labor Stage 2 Duration: 44 minutes Placenta Delivery Date-Baby A: 03/31/24 Placenta Delivery Time-Baby A: 16:28 Labor-Stage 3 Duration: 14 minutes Total Length of Labor-Baby A: 3 hours and 14 minutes Placenta Status: Delivered Baby A Infant Gender: Female Gestational Status: Term (39-41.6 wks) Gestational Age in Weeks/Days: 38 Weeks and 0 Days Length-Baby A: 6.5 in Score-1 Minute Interval(Baby A) Heart Rate-1 minute: 100 BPM or Greater Respiratory Effort- 1 minute: Spontaneous/Strong Cry Muscle Tone-1 minute: Active Movement Reflex Response-1 minute: Prompt Response Color-1 minute: Pallor or Cyanosis Total Score-1 minute: 8 Score-5 Minute Interval(Baby A) Heart Rate- 5 minute: 100 BPM or Greater Respiratory Effort-5 minute: Spontaneous/Strong Cry Muscle Tone-5 minute: Active Movement Reflex Response-5 minute: Prompt Response Color-5 minute: Bluish Hands or Feet Total Score- 5 minute: 9
[2024-03-31] MEDS: Hamamelis Leaf/Glycerin 100 EACH BOX PR (17:31)
[2024-03-31] MEDS: Dibucaine 1% 28 GM TUBE TP (17:32)
[2024-03-31] MEDS: Acetaminophen 325 MG TAB 650 MG PO (17:33)
[2024-03-31] MEDS: Docusate Sodium 100 MG CAP PO (17:33)
[2024-03-31] MEDS: Ibuprofen 600 MG TAB PO (17:33)
[2024-04-01 02:00] VITALS: BP 105/64; PULSE 57; RESP 18; TEMP 37.1
--- NOTE | 2024-04-01 03:32 | W.ANESPOSTOP ---
Postoperative Evaluation Date, Time and Location Date Performed: 04/01/24 Time Performed: 03:32 Patient Location: Obstetrics Vital Signs Most Recent Imported Vital Signs: Most Recent Vital Signs Temp Pulse Resp BP Pulse Ox 37.0 C 76 18 114/50 L 96 03/31/24 20:00 03/31/24 20:00 03/31/24 20:00 03/31/24 20:00 03/31/24 09:38 Pain Score Most Recent Pain Score: Most Recent Pain Score Pain Level 0 03/31/24 17:30 Assessment Mental Status: Awake (Alert & Oriented to Patient Baseline) Airway and Respiratory Function: Patent airway with normal (patient baseline) respiratory exam Cardiovascular Function: Hemodynamically Stable Hydration Status: Adequately Hydrated Nausea & Vomiting: No Nausea or Vomiting Pain: Pain is tolerable per patient Peripheral Nerve Block: Patient did not receive a nerve block Postoperative Comments:: sleeping, comfortable, no issues reported.
[2024-04-01 08:00] VITALS: BP 106/71; PULSE 72; RESP 16; TEMP 36.2; O2SAT 96
[2024-04-01] MEDS: Ibuprofen 600 MG TAB PO (08:09)
[2024-04-01] MEDS: Acetaminophen 325 MG TAB 650 MG PO (08:09)
[2024-04-01] MEDS: Docusate Sodium 100 MG CAP PO (08:09)
--- NOTE | 2024-04-01 14:26 | W.PM.OBPNV1 ---
Date of service: 04/01/24 Time of Service: 12:00 Assessment and Plan Assessment and plan (1) Term delivered: Status: Acute Assessment and plan: A: PPD#1, nml recovery Happy with experience P: Plan for discharge after 24 hrs today Written instructions reviewed and given to pt Plans IUD after 6 wk appt F/up at 2 & 6 wks Subjective Subjective Patient comments: No complaints, Pain well controlled, Tolerating diet and Bowel Movement Patient's Mood: happy baby status: Doing well, Nursing well, Rooming in and Strong Bonding Observed [place] feeding status: Exclusively breast feeding Exam Physical Exam Vital signs: Temp Pulse Resp BP Pulse Ox 97.1 F L 72 16 106/71 96 04/01/24 08:00 04/01/24 08:00 04/01/24 08:00 04/01/24 08:00 04/01/24 08:00 Vital Signs Reviewed: Yes Constitutional Constitutional: no acute distress and cooperative HEENT Exam HEENT Exam: Normal Neck Exam Neck Exam: Normal Breast Exam Bilateral: Breast Exam: Normal and Soft Nipple Exam: Normal and Uninjured Respiratory Exam Respiratory Exam: Normal Cardiovascular Exam Cardiovascular Exam: Normal Abdominal Exam Abdomen: Other (soft, nontender) Fundal Exam Fundus: Below Umbilicus and Firm Rectal Exam Rectal Exam: Normal Exam Patient deferred: external exam Extremities Exam Extremity Exam: Normal, Full ROM and Warm to Touch Back/Spine/Pelvis Exam Back Exam: Normal Skin Exam Skin Exam: Normal Neurological Exam Neurological Exam: Normal Psychiatric Exam Psychiatric Exam: Normal
--- NOTE | 2024-04-01 14:29 | DSE_ITS ---
Date of service: 04/01/24 Time of Service: 14:29 DS: Diagnosis Discharge Diagnosis (1) Term delivered: Status: Acute Discharge Plan Disposition Patient Disposition: Home Condition: Good Discharge Details Reason For Visit: IOL Admit Date/Time: 03/30/24 18:09 Admit Provider: Celina Singh Attending Provider: Celina Singh Primary Care Provider: Ronna Strickland Hospital Course Hospital Course: on HD#2, desires discharge on PPD#1, nml course Home Meds and New Rx's Prescriptions: No Action prenat.vits,tom,[id number]-gtzk-kookp Tablet 1 tab PO DAILY Fiber Gummies 2 gram tablet,chewable 2 g PO PRN PRN ferrous sulfate 325 mg (65 mg iron) tablet 325 mg PO DAILY Discharge Instructions Additional Instructions: Please keep 2 and 6 wk appt's with the vp emerging media, call for any and all concerns or questions Stand Alone Forms: BC Instructions, BC Post Vaginal Deliver Activity:: Activity as Tolerated Equipment/Supplies:: No Equipment Needed Diet:: Normal Diet OB:DS Summary Summary Vaginal Delivery Method: Spontaneaous Laceration Description: Periurethral Laceration Extension: First Degree Contraception Discussed Contraception Discussed: Yes Contraceptive Plan: IUD, Infant Gender-Baby A: Female weight: 6 lb 11.762 oz Status at Discharge Functional status at discharge: independent ambulation Overall status at discharge: patient is progressing back to baseline Mental Status: mental status grossly normal Speech and Movement: speech and movement normal Mood: congruent mood Affect: normal affect Quality:SDOH Health Related Social Needs: No Data to Display Exam Physical Exam Vital signs: Temp Pulse Resp BP Pulse Ox 97.1 F L 72 16 106/71 96 04/01/24 08:00 04/01/24 08:00 04/01/24 08:00 04/01/24 08:00 04/01/24 08:00 Constitutional Constitutional: no acute distress and cooperative HEENT Exam HEENT Exam: Normal Neck Exam Neck Exam: Normal Breast Exam Bilateral: Breast Exam: Normal and Soft Respiratory Exam Respiratory Exam: Normal Cardiovascular Exam Cardiovascular Exam: Normal Abdominal Exam Abdomen: Other (soft, nontender) Fundal Exam Fundus: Below Umbilicus and Firm Rectal Exam Rectal Exam: Normal Exam Patient deferred: external exam Extremities Exam Extremity Exam: Normal, Full ROM and Warm to Touch Back/Spine/Pelvis Exam Back Exam: Normal Skin Exam Skin Exam: Normal Neurological Exam Neurological Exam: Normal Psychiatric Exam Psychiatric Exam: Normal PFSH All Active Problems (Updated 04/01/24 @ 14:26 by Judie Pittman) Term delivered (Acute) Anemia (Chronic) Medical History (Updated 04/01/24 @ 14:26 by Judie Pittman) Encounter for induction of labor Subungual hematoma of left middle finger History of cholestasis during DUB (dysfunctional uterine bleeding) History of poor outcome loss after AROM at 15 weeks gestation Dermatitis (01/31/16) Surgical History Broken Arm (~03/2010) Appendectomy (~06/2006) Family History (Updated 09/28/23 @ 10:45 by Celina Singh CNM) Mother Hypothyroid Father Essential hypertension Hyperlipidemia Sister Asthma Grandfather Stroke Grandfather Diabetes TYPE II Heart disease Hyperlipidemia Grandmother Stroke Social History Smoking/Tobacco Use Status: Never Smoking risk assessment performed?: Yes Alcohol Intake: former Substance use type: does not use Household members: other Details: , Frank Murillo Housing: house Number of Children: 1 current occupation: [employer] Sexually active: Yes Do you think of yourself as: straight/heterosexual Current gender identity: female Seatbelt use: always Do you feel safe at home: Yes ( in room) Do you feel safe in your relationship?: Yes Additional Social history: 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 Female Reproductive History Menstrual Age of Menarche: 14 Duration of menses: 3-5 days History History 3 Para 1 Hx # Term Pregnancies 1 Multiple births 0 Hx # Pregnancies 0 Ectopic pregnancies 0 AB induced 0 Hx Number of Living Children 1 AB spontaneous 1 Past Pregnancies Del. Date GA/Weeks # Preg Succ Route Wgt Sex Labor Lgth Anesth esia Location Prov Complic 07/20/19 37 No Yes vaginal 6 lb 4 oz Male 10 hours 50 min regiona l Gonzalez Joseph CNM low apgars 02/27/23 15 No No vaginal Male QUAN [place]; PROM; inevitable /miscarriage; augmented Delivery Date: 07/20/19 Last Updated by: Celina Singh CNM Induced due to ICP, delivered easily yet tight nuchal cord noted, unable to reduce, needed to be clamped and cut, baby with poor tone and required resuscitation. Ritter Delivery Date: 02/27/23 Last Updated by: Celina Singh CNM Rocio, PPROM, misoprostol induction. DS: Data Vitals/I&O Vitals and I&O: Vital Signs Temperature 97.1 F L 04/01/24 08:00 Temperature 98.2 F 03/30/24 19:10 Temperature Source Oral 04/01/24 08:00 Pulse 72 04/01/24 08:00 Pulse 69 03/30/24 19:10 Pulse Rhythm Regular 04/01/24 08:00 Respiratory Rate 16 04/01/24 08:00 Respiratory Depth Normal 03/30/24 19:00 Blood Pressure 106/71 04/01/24 08:00 Blood Pressure 117/68 03/30/24 19:10 Blood Pressure Mean 82 04/01/24 08:00 Pulse Oximetry 96 04/01/24 08:00 Pain Level 2 04/01/24 08:09 Intake & Output 03/31/24 04/01/24 04/01/24 23:59 11:59 23:59 Intake Total 750 / 750 Output Total 1000 / 2250 Balance -250 / -1500 Intake: IV 750 / 750 Output: Urine 1000 / 2250 Other: Urine Color [place] Yellow Urine Appearance Clear
[2024-04-02 15:00] LABS: Bile Acids, Total 11 mcmol/L (<=10)
== END 2024-04-01 17:45 | disposition home or self-care (01) | DRG 807 ==
PROVIDERS: Admitting Provider Advanced Practice Midwife; PCP Obstetrics & Gynecology; Visit Provider Advanced Practice Midwife
DX: O99.62 Diseases of the digestive system complicating childbirth (principal); Z37.0 Single live birth; O71.82 Other specified trauma to perineum and vulva; Z3A.38 38 weeks gestation of pregnancy; K59.09 Other constipation; O99.02 Anemia complicating childbirth; D64.9 Anemia, unspecified
CPT/HCPCS: 85027; 86850; 86900; 86901; 59200; 82239; J3490

== ENCOUNTER 2024-07-25 03:05 | Outpatient (CLI) | payer OTHER, SELFPAY ==
[2024-07-25 12:27] LABS: Anion Gap 9.3 mmol/L (3-11); BUN 13 mg/dL (7-18); CO2 26.7 mmol/L (21.0-32.0); Calculated LDL 90 mg/dL (<100); Chloride 104 mmol/L (98-107); Cholesterol 168 mg/dL (<200); Estimated GFR 73.95 (mL/min/1.73m2); Glucose 76 mg/dL (74-106); HDL Cholesterol 73 mg/dL (40-60); Potassium 3.8 mmol/L (3.5-5.1); Sodium 140 mmol/L (136-145); Triglyceride 29 mg/dL (<150)
[2024-07-25 12:32] LABS: Hemoglobin A1C 5.5 % (<5.7)
== END 2024-07-25 03:06 | disposition home or self-care (01) ==
LOC: LOS 03:05
PROVIDERS: PCP Nurse Practitioner Family; Visit Provider Nurse Practitioner Family
DX: Z00.00 Encounter for general adult medical examination without abnormal findings (principal); D64.9 Anemia, unspecified
CPT/HCPCS: 36415; 80048; 80061; 83036

== ENCOUNTER 2024-10-13 14:32 | Outpatient (REF) | payer OTHER, SELFPAY ==
--- NOTE | 2024-10-13 11:55 | SKI_PTH ---
PATIENT: Destiny Murillo LOC: [facility] U#:[id number] AGE/SX: 38/F ROOM: RE10/13/[address]: Froy Ha MD : 1985 BED: DIS: 10/13/2024 SPEC #: [id number] RECD: 10/13/24 17:32 STATUS: NIHARIKA WILSON #: [id number] FELICITAS: 10/13/24 11:[address]: Froy Ha DEPT: Surgical Specimen RECD BY: Patricia Coleman ENTERED: 10/13/24 17:33 SP TYPE: BLAINE CHA DR: Rosmery Morales, SOFTWARE CONFIGURATION MANAGER Tissues: 1 - SKIN BIOPSY(SHAVE/PUNCH) 2 - SKIN BIOPSY(SHAVE/PUNCH) Procedures: SKIN LEVEL 4 Comments: [id number]
== END 2024-10-13 14:33 | disposition home or self-care (01) ==
LOC: LBN 14:32
PROVIDERS: PCP Nurse Practitioner Family; Referring Provider Nurse Practitioner Family; Visit Provider Otolaryngology
DX: L98.9 Disorder of the skin and subcutaneous tissue, unspecified (principal)
CPT/HCPCS: 88305